=== PATIENT | male | born 1950 | race African-American/Black ===

== ENCOUNTER 2018-12-21 10:11 | Inpatient (IN) | payer MEDICARE, MEDICAID ==
[~2018-12-21] VITALS: Ht 176.5 cm; Wt 68.0 kg
[2018-12-21] MEDS ORDERED: MORPHINE SULFATE 4 MG/ML CPJ (NOT FOR IM USE) IV STA (11:13)
[2018-12-21] MEDS ORDERED: ONDANSETRON HCL 4MG/2ML INJ IV STA (11:13)
[2018-12-21 12:07] LABS: BASOPHILS % 0.8 % (0.0-2.0); EOSINOPHILS % 0.7 % (0.0-5.0); HEMATOCRIT. 51.4 % (42.0-52.0); HEMOGLOBIN. 17.5 g/dL (14.0-18.0); LYMPHOCYTES % 20.3 % (20.0-50.0); MEAN CORPUSCULAR HEMOGLOBIN 32.8 pg (28.0-32.0); MEAN CORPUSCULAR VOLUME 96.3 fL (80.0-94.0); MEAN PLATELET VOLUME 7.2 fl (7.4-10.4); MONOCYTES % 6.6 % (2.0-8.0); NEUTROPHILS % 71.6 % (40.0-76.0); PLATELET 247 x1000/uL (130-400); RED BLOOD CELL COUNT 5.33 mill/uL (4.7-6.1); RED CELL DISTRIBUTION WIDTH 12.9 % (11.6-14.6)
[2018-12-21 12:12] LABS: CHLORIDE 101 mEq/L (98-107)
[2018-12-21 12:13] LABS: INR 1.1; PROTHROMBIN TIME 11.1 sec (9.1-11.1)
[2018-12-21 12:16] LABS: ETHANOL BLOOD < 10 mg/dL
[2018-12-21] MEDS ORDERED: IOHEXOL-300 100 ML BOTTLE ONE (15:20)
[2018-12-21] MEDS ORDERED: VISCOUS LIDOCAINE 2% 15 ML UDC MM STA (16:49)
[2018-12-21] MEDS ORDERED: MAGNESIUM/ALUMINUM HYDROXIDE/SIMETHICONE 30ML UDC PO ONE (17:00)
[2018-12-21 17:03] LABS: CLARITY URINE CLEAR (CLEAR); COLOR URINE YELLOW (YELLOW); KETONES URINE 1+ (NEGATIVE); LEUKOCYTE ESTERASE URINE 2+ (NEGATIVE); NITRITE URINE NEGATIVE (NEGATIVE); OCCULT BLOOD URINE NEGATIVE (NEGATIVE); PROTEIN URINE NEGATIVE (NEGATIVE); SPECIFIC GRAVITY URINE 1.028 (1.005-1.030)
[2018-12-21 17:28] LABS: *AMPHETAMINES SCREEN URINE NEGATIVE (NEGATIVE); *BARBITURATES SCREEN URINE NEGATIVE (NEGATIVE); *BENZODIAZEPINES SCREEN URINE NEGATIVE (NEGATIVE); *COCAINE SCREEN URINE PRESUMTIVE POSITIVE (NEGATIVE); CANNABINOID URINE SCREEN PRESUMTIVE POSITIVE (NEGATIVE); METHADONE URINE SCREEN NEGATIVE (NEGATIVE); PHENCYCLIDINE URINE SCREEN NEGATIVE (NEGATIVE)
[2018-12-21 17:29] LABS: OPIATES URINE SCREEN PRESUMTIVE POSITIVE (NEGATIVE)
[2018-12-21] MEDS ORDERED: ACETAMINOPHEN 325MG TABLET PO PRN (18:45)
[2018-12-21] MEDS ORDERED: HYDRALAZINE 20MG/ML VIAL IV PRN (18:45)
[2018-12-21] MEDS ORDERED: GUAIFENESIN 200MG/10ML SUGAR FREE UDC PO PRN (18:45)
[2018-12-21] MEDS ORDERED: IPRATROPIUM/ALBUTEROL 0.5-3(2.5)MG/3ML NEB INH PRN (18:45)
[2018-12-21] MEDS ORDERED: MAGNESIUM/ALUMINUM HYDROXIDE/SIMETHICONE 30ML UDC PO PRN (18:45)
[2018-12-21] MEDS ORDERED: ONDANSETRON HCL 4MG/2ML INJ IV PRN (18:45)
[2018-12-21] MEDS ORDERED: CLONIDINE 0.1MG TABLET PO PRN (18:45)
[2018-12-21] MEDS ORDERED: HYDROCODONE/ACETAMINOPHEN 10/325MG TABLET PO PRN (18:45)
[2018-12-21] MEDS ORDERED: LORAZEPAM 2MG/ML CPJ IV PRN (18:45)
[2018-12-21] MEDS ORDERED: NA PHOS,M-B/NA PHOS,DI-BA ENEMA 118ML PR PRN (18:45)
[2018-12-21] MEDS ORDERED: DOCUSATE SODIUM 100MG CAPSULE PO PRN (18:45)
[2018-12-21 23:50] VITALS: BP 111/65
[2018-12-22] VITALS: BP 111/65
[2018-12-22] MEDS: HYDROMORPHONE HCL/PF 2MG/ML CPJ IV PRN ×2 (00:35→13:12)
[2018-12-22] MEDS: SODIUM CHLORIDE 0.45% 1,000 ML IV SCH ×2 (00:37→22:52)
[2018-12-22 00:38] LABS: CREATINE KINASE MB FRACTION 2.5 ng/mL (0.5-3.6)
[2018-12-22 04:00] VITALS: BP 99/61
[2018-12-22] MEDS: SODIUM CHLORIDE 0.9% INJ 3ML FLUSH IVF SCH ×3 (05:42→21:28)
[2018-12-22 07:35] LABS: BASOPHILS % 0.7 % (0.0-2.0); EOSINOPHILS % 0.8 % (0.0-5.0); HEMATOCRIT. 46.2 % (42.0-52.0); LYMPHOCYTES % 27.9 % (20.0-50.0); MEAN CORPUSCULAR VOLUME 95.4 fL (80.0-94.0); MEAN PLATELET VOLUME 7.4 fl (7.4-10.4); NEUTROPHILS % 63.6 % (40.0-76.0); PLATELET 210 x1000/uL (130-400); RED BLOOD CELL COUNT 4.84 mill/uL (4.7-6.1); RED CELL DISTRIBUTION WIDTH 12.6 % (11.6-14.6)
[2018-12-22 07:44] VITALS: BP 110/69
[2018-12-22] MEDS: ASPIRIN 81MG EC TABLET PO SCH (08:38)
[2018-12-22] MEDS: ENOXAPARIN 40MG/0.4ML SYR SUBCUT SCH (08:39)
[2018-12-22] MEDS: PANTOPRAZOLE SODIUM 40 MG/VIAL IV SCH (08:39)
[2018-12-22 10:13] LABS: CHLORIDE 102 mEq/L (98-107)
[2018-12-22 10:22] LABS: CREATINE KINASE 52 IU/L (39-308)
[2018-12-22 10:24] LABS: LDL CHOLESTEROL 86 mg/dL (5-100); T4 FREE 1.23 ng/dL (0.76-1.46)
[2018-12-22 10:25] LABS: HDL CHOLESTEROL 42 mg/dL (40-59)
[2018-12-22 10:33] LABS: CREATINE KINASE MB FRACTION 2.6 ng/mL (0.5-3.6)
[2018-12-22 12:00] VITALS: BP 109/65
[2018-12-22] MEDS ORDERED: METOCLOPRAMIDE HCL 10MG/2ML VIAL IV PRN (12:15)
[2018-12-22 16:00] VITALS: BP 101/71
[2018-12-22 20:00] VITALS: BP 110/58
[2018-12-23] VITALS: BP 122/65
[2018-12-23 01:16] LABS: CREATINE KINASE MB FRACTION 2.6 ng/mL (0.5-3.6)
[2018-12-23 04:00] VITALS: BP 109/68
[2018-12-23] MEDS: HYDROMORPHONE HCL/PF 2MG/ML CPJ IV PRN (05:51)
[2018-12-23] MEDS: SODIUM CHLORIDE 0.9% INJ 3ML FLUSH IVF SCH ×3 (05:52→21:36)
[2018-12-23 07:27] LABS: CREATINE KINASE MB FRACTION 2.4 ng/mL (0.5-3.6)
[2018-12-23 08:00] VITALS: BP 102/65
[2018-12-23] MEDS: PANTOPRAZOLE SODIUM 40 MG/VIAL IV SCH (08:10)
[2018-12-23] MEDS: ASPIRIN 81MG EC TABLET PO SCH (08:10)
[2018-12-23] MEDS: ENOXAPARIN 40MG/0.4ML SYR SUBCUT SCH (08:10)
[2018-12-23 08:41] LABS: EOSINOPHILS % 1.3 % (0.0-5.0); HEMATOCRIT. 40.9 % (42.0-52.0); HEMOGLOBIN. 14.1 g/dL (14.0-18.0); LYMPHOCYTES % 40.2 % (20.0-50.0); MEAN CORPUSCULAR HEMOGLOBIN 32.7 pg (28.0-32.0); MEAN CORPUSCULAR VOLUME 95.2 fL (80.0-94.0); MEAN PLATELET VOLUME 7.4 fl (7.4-10.4); MONOCYTES % 7.4 % (2.0-8.0); NEUTROPHILS % 50.1 % (40.0-76.0); PLATELET 179 x1000/uL (130-400); RED CELL DISTRIBUTION WIDTH 12.5 % (11.6-14.6)
[2018-12-23] MEDS ORDERED: ASPIRIN 81MG TABLET PO SCH (09:00)
[2018-12-23 12:00] VITALS: BP 103/69
[2018-12-23 16:00] VITALS: BP 104/65
[2018-12-23 20:00] VITALS: BP 104/69
[2018-12-24] VITALS: BP 119/81
[2018-12-24] MEDS: HYDROMORPHONE HCL/PF 2MG/ML CPJ IV PRN ×4 (00:20→22:26)
[2018-12-24 04:00] VITALS: BP 111/75
[2018-12-24] MEDS: SODIUM CHLORIDE 0.9% INJ 3ML FLUSH IVF SCH ×3 (05:58→22:31)
[2018-12-24 07:27] LABS: BASOPHILS % 0.9 % (0.0-2.0); EOSINOPHILS % 2.1 % (0.0-5.0); HEMATOCRIT. 39.2 % (42.0-52.0); HEMOGLOBIN. 13.3 g/dL (14.0-18.0); LYMPHOCYTES % 50.2 % (20.0-50.0); MEAN CORPUSCULAR HEMOGLOBIN 32.7 pg (28.0-32.0); MEAN CORPUSCULAR VOLUME 96.2 fL (80.0-94.0); MEAN PLATELET VOLUME 7.5 fl (7.4-10.4); MONOCYTES % 6.6 % (2.0-8.0); NEUTROPHILS % 40.2 % (40.0-76.0); PLATELET 169 x1000/uL (130-400); RED BLOOD CELL COUNT 4.08 mill/uL (4.7-6.1); RED CELL DISTRIBUTION WIDTH 12.6 % (11.6-14.6)
[2018-12-24 08:00] VITALS: BP 96/63
[2018-12-24] MEDS: PANTOPRAZOLE SODIUM 40 MG/VIAL IV SCH (09:00)
[2018-12-24] MEDS: ENOXAPARIN 40MG/0.4ML SYR SUBCUT SCH (09:00)
[2018-12-24] MEDS: ASPIRIN 81MG EC TABLET PO SCH (09:45)
[2018-12-24 12:00] VITALS: BP 96/64
[2018-12-24 16:00] VITALS: BP 94/66
[2018-12-24 20:00] VITALS: BP 110/71
[2018-12-25] VITALS: BP 113/66
[2018-12-25 04:00] VITALS: BP 115/70
[2018-12-25] MEDS: SODIUM CHLORIDE 0.9% INJ 3ML FLUSH IVF SCH ×2 (06:06→13:05)
[2018-12-25 08:00] VITALS: BP 99/66
[2018-12-25] MEDS: PANTOPRAZOLE SODIUM 40 MG/VIAL IV SCH (08:33)
[2018-12-25] MEDS: ASPIRIN 81MG EC TABLET PO SCH (08:33)
[2018-12-25] MEDS: ENOXAPARIN 40MG/0.4ML SYR SUBCUT SCH (08:33)
[2018-12-25 09:24] LABS: BASOPHILS % 0.8 % (0.0-2.0); HEMATOCRIT. 40.2 % (42.0-52.0); HEMOGLOBIN. 13.8 g/dL (14.0-18.0); LYMPHOCYTES % 37.2 % (20.0-50.0); MEAN CORPUSCULAR VOLUME 96.1 fL (80.0-94.0); MEAN PLATELET VOLUME 7.2 fl (7.4-10.4); MONOCYTES % 7.7 % (2.0-8.0); NEUTROPHILS % 52.3 % (40.0-76.0); PLATELET 174 x1000/uL (130-400); RED BLOOD CELL COUNT 4.18 mill/uL (4.7-6.1); RED CELL DISTRIBUTION WIDTH 12.9 % (11.6-14.6)
[2018-12-25 10:12] LABS: CHLORIDE 105 mEq/L (98-107)
[2018-12-25 12:00] VITALS: BP 127/85
[2018-12-25 12:10] VITALS: BP 104/73
== END 2018-12-25 14:05 | disposition home or self-care (01) | DRG 683 ==
LOC: ER 10:11 → 6WST 15:06 → EDBEDREQTM 21:52 → EDBEDREQ 21:52 → EDBEDREQSVC 21:52 → ENRESERV 22:58
PROVIDERS: ADMIT Internal Medicine; ATTEND Internal Medicine
DX: I12.9 Hypertensive chronic kidney disease with stage 1 through stage 4 chronic kidney disease, or unspecified chronic kidney disease (principal); N17.9 Acute kidney failure, unspecified; I69.354 Hemiplegia and hemiparesis following cerebral infarction affecting left non-dominant side; N40.0 Benign prostatic hyperplasia without lower urinary tract symptoms; E87.5 Hyperkalemia; R74.8 Abnormal levels of other serum enzymes; N18.3 Chronic kidney disease, stage 3 (moderate); E78.5 Hyperlipidemia, unspecified; F19.10 Other psychoactive substance abuse, uncomplicated; Z59.0 Homelessness
CPT/HCPCS: 36415; 71045; 74177; 80048; 80061; 80305; 82550; 82553; 83036; 83880; 84439; 84443; 84484; 85379; 93005; 93306; 93970; 96374; 96375; 97162; 97166; 97535; 99285; C9113; G0482; J1170; J1650; J2270; J2405; J7070; Q9967

== ENCOUNTER 2018-12-30 13:27 | Inpatient (IN) | payer MEDICARE, MEDICAID ==
[~2018-12-30] VITALS: Ht 175.3 cm; Wt 70.8 kg
[2018-12-30] MEDS ORDERED: GABA-531 PO (13:37)
[2018-12-30] MEDS ORDERED: AMLO10TA80 PO (13:37)
[2018-12-30] MEDS ORDERED: SODIUM CHLORIDE 0.9% 1,000 ML IV ONE (14:44)
[2018-12-30 16:30] LABS: CLARITY URINE CLEAR (CLEAR); COLOR URINE YELLOW (YELLOW); KETONES URINE NEGATIVE (NEGATIVE); LEUKOCYTE ESTERASE URINE TRACE (NEGATIVE); NITRITE URINE NEGATIVE (NEGATIVE); OCCULT BLOOD URINE NEGATIVE (NEGATIVE); PH URINE 7.5 (4.5-8.0); PROTEIN URINE NEGATIVE (NEGATIVE); SPECIFIC GRAVITY URINE 1.009 (1.005-1.030); UROBILINOGEN URINE 0.2 E.U./dL (0.2-1.0)
[2018-12-30 16:31] LABS: BASOPHILS % 0.5 % (0.0-2.0); EOSINOPHILS % 1.1 % (0.0-5.0); HEMATOCRIT. 43.5 % (42.0-52.0); HEMOGLOBIN. 14.9 g/dL (14.0-18.0); LYMPHOCYTES % 18.8 % (20.0-50.0); MEAN CORPUSCULAR VOLUME 96.7 fL (80.0-94.0); MEAN PLATELET VOLUME 7.2 fl (7.4-10.4); MONOCYTES % 6.5 % (2.0-8.0); NEUTROPHILS % 73.1 % (40.0-76.0); PLATELET 202 x1000/uL (130-400); RED CELL DISTRIBUTION WIDTH 13.2 % (11.6-14.6)
[2018-12-30 16:36] LABS: *COCAINE SCREEN URINE PRESUMTIVE POSITIVE (NEGATIVE); METHADONE URINE SCREEN NEGATIVE (NEGATIVE)
[2018-12-30 16:37] LABS: *AMPHETAMINES SCREEN URINE NEGATIVE (NEGATIVE); *BARBITURATES SCREEN URINE NEGATIVE (NEGATIVE); *BENZODIAZEPINES SCREEN URINE NEGATIVE (NEGATIVE); CANNABINOID URINE SCREEN PRESUMTIVE POSITIVE (NEGATIVE); CHLORIDE 105 mEq/L (98-107); OPIATES URINE SCREEN NEGATIVE (NEGATIVE); PHENCYCLIDINE URINE SCREEN NEGATIVE (NEGATIVE)
[2018-12-30] MEDS ORDERED: KETOROLAC 15MG/ML VIAL IV ONE (16:45)
[2018-12-30 16:51] LABS: PROTHROMBIN TIME 9.8 sec (9.1-11.1)
[2018-12-30] MEDS ORDERED: ASPIRIN 325MG EC TABLET PO ONE (17:30)
[2018-12-30] MEDS ORDERED: CEFTRIAXONE 1 G PREMIX 50 ML IV ONE (19:00)
[2018-12-30] MEDS ORDERED: LORAZEPAM 2MG/ML CPJ IV PRN (19:15)
[2018-12-30] MEDS ORDERED: DOCUSATE SODIUM 100MG CAPSULE PO PRN (19:15)
[2018-12-30] MEDS ORDERED: HYDROMORPHONE HCL/PF 2MG/ML CPJ IV PRN (19:15)
[2018-12-30] MEDS ORDERED: ACETAMINOPHEN 325MG TABLET PO PRN (19:15)
[2018-12-30] MEDS ORDERED: DIPHENHYDRAMINE 50MG/ML VIAL IV PRN (19:15)
[2018-12-30] MEDS ORDERED: HYDRALAZINE 20MG/ML VIAL IV PRN (19:15)
[2018-12-30] MEDS ORDERED: GUAIFENESIN 200MG/10ML SUGAR FREE UDC PO PRN (19:15)
[2018-12-30] MEDS ORDERED: ONDANSETRON HCL 4MG/2ML INJ IV PRN (19:15)
[2018-12-30] MEDS ORDERED: CLONIDINE 0.1MG TABLET PO PRN (19:15)
[2018-12-30] MEDS ORDERED: NA PHOS,M-B/NA PHOS,DI-BA ENEMA 118ML PR PRN (19:15)
[2018-12-30] MEDS ORDERED: IPRATROPIUM/ALBUTEROL 0.5-3(2.5)MG/3ML NEB INH PRN (19:15)
[2018-12-30 20:50] VITALS: BP 116/65
[2018-12-30 21:00] VITALS: BP 119/72
[2018-12-30] MEDS: SODIUM CHLORIDE 0.9% INJ 3ML FLUSH IVF SCH (22:00)
[2018-12-30] MEDS: ENOXAPARIN 40MG/0.4ML SYR SUBCUT SCH (22:00)
[2018-12-31] VITALS: BP 110/65
[2018-12-31] MEDS: HYDROCODONE/ACETAMINOPHEN 10/325MG TABLET PO PRN ×4 (01:57→16:06)
[2018-12-31 02:53] LABS: CREATINE KINASE MB FRACTION 3.7 ng/mL (0.5-3.6)
[2018-12-31 04:00] VITALS: BP 111/70
[2018-12-31] MEDS: SODIUM CHLORIDE 0.9% INJ 3ML FLUSH IVF SCH ×3 (06:00→21:05)
[2018-12-31 07:32] LABS: CHLORIDE 109 mEq/L (98-107)
[2018-12-31 07:37] LABS: BASOPHILS % 0.6 % (0.0-2.0); EOSINOPHILS % 2.3 % (0.0-5.0); HEMATOCRIT. 34.3 % (42.0-52.0); HEMOGLOBIN. 11.8 g/dL (14.0-18.0); LYMPHOCYTES % 36.6 % (20.0-50.0); MEAN CORPUSCULAR HEMOGLOBIN 33.1 pg (28.0-32.0); MEAN CORPUSCULAR VOLUME 96.1 fL (80.0-94.0); MEAN PLATELET VOLUME 7.1 fl (7.4-10.4); MONOCYTES % 9.1 % (2.0-8.0); NEUTROPHILS % 51.4 % (40.0-76.0); PLATELET 157 x1000/uL (130-400); RED BLOOD CELL COUNT 3.57 mill/uL (4.7-6.1); RED CELL DISTRIBUTION WIDTH 13.1 % (11.6-14.6)
[2018-12-31 07:49] LABS: HDL CHOLESTEROL 52 mg/dL (40-59); LDL CHOLESTEROL 63 mg/dL (5-100)
[2018-12-31 07:50] LABS: CREATINE KINASE 149 IU/L (39-308); CREATINE KINASE MB FRACTION 3.3 ng/mL (0.5-3.6)
[2018-12-31 07:51] LABS: T4 FREE 0.99 ng/dL (0.76-1.46)
[2018-12-31 08:00] VITALS: BP 112/73
[2018-12-31] MEDS: ASPIRIN 81MG EC TABLET PO SCH (08:51)
[2018-12-31 12:00] VITALS: BP 112/50
[2018-12-31 16:00] VITALS: BP_SYST 114; BP_SYST 122; BP_DIAS 71; BP_DIAS 82
[2018-12-31 20:00] VITALS: BP 114/75
[2018-12-31] MEDS: ENOXAPARIN 40MG/0.4ML SYR SUBCUT SCH (21:06)
[2019-01-01] VITALS: BP 110/68
[2019-01-01] MEDS: HYDROCODONE/ACETAMINOPHEN 10/325MG TABLET PO PRN ×5 (02:26→21:56)
[2019-01-01 04:00] VITALS: BP 123/78
[2019-01-01] MEDS: SODIUM CHLORIDE 0.9% INJ 3ML FLUSH IVF SCH ×3 (05:37→21:18)
[2019-01-01 08:00] VITALS: BP 132/70
[2019-01-01] MEDS: ASPIRIN 81MG EC TABLET PO SCH (09:13)
[2019-01-01] MEDS ORDERED: DULO60CA63 PO (11:21)
[2019-01-01] MEDS ORDERED: CYAN-33 MT (11:21)
[2019-01-01] MEDS ORDERED: DOCU-150 MT (11:21)
[2019-01-01] MEDS ORDERED: BIMA2.5D5 EACHEYE (11:21)
[2019-01-01] MEDS ORDERED: TRAZ-212 MT (11:21)
[2019-01-01] MEDS ORDERED: AMLO10TA80 MT (11:24)
[2019-01-01] MEDS ORDERED: GABA-531 MT (11:24)
[2019-01-01 12:00] VITALS: BP 110/87
[2019-01-01 16:00] VITALS: BP 100/54
[2019-01-01] MEDS: MAGNESIUM/ALUMINUM HYDROXIDE/SIMETHICONE 30ML UDC PO PRN (17:38)
[2019-01-01] MEDS: GABAPENTIN 300MG CAPSULE PO SCH (17:38)
[2019-01-01 20:00] VITALS: BP 123/84
[2019-01-01] MEDS: TRAZODONE HCL 50MG TABLET PO SCH (21:12)
[2019-01-01] MEDS: LATANOPROST 0.005% OPHTH DROPS 2.5ML EACHEYE SCH (21:13)
[2019-01-01] MEDS: ENOXAPARIN 40MG/0.4ML SYR SUBCUT SCH (21:13)
[2019-01-02] VITALS (7 sets, daily range): BP systolic 102–129; BP diastolic 55–80
[2019-01-02] MEDS: HYDROCODONE/ACETAMINOPHEN 10/325MG TABLET PO PRN ×2 (05:10→20:53)
[2019-01-02] MEDS: SODIUM CHLORIDE 0.9% INJ 3ML FLUSH IVF SCH ×3 (05:11→20:33)
[2019-01-02] MEDS: AMLODIPINE 10MG TABLET PO SCH (08:56)
[2019-01-02] MEDS: GABAPENTIN 300MG CAPSULE PO SCH ×3 (09:08→17:37)
[2019-01-02] MEDS: ASPIRIN 81MG EC TABLET PO SCH (09:08)
[2019-01-02] MEDS: DULOXETINE HCL 60MG DR CAPSULE PO SCH (09:08)
[2019-01-02] MEDS: MAGNESIUM/ALUMINUM HYDROXIDE/SIMETHICONE 30ML UDC PO PRN (12:13)
[2019-01-02] MEDS: LATANOPROST 0.005% OPHTH DROPS 2.5ML EACHEYE SCH (20:31)
[2019-01-02] MEDS: TRAZODONE HCL 50MG TABLET PO SCH (20:31)
[2019-01-02] MEDS: ENOXAPARIN 40MG/0.4ML SYR SUBCUT SCH (20:32)
[2019-01-03] VITALS: BP 120/80
[2019-01-03 04:00] VITALS: BP 109/61
[2019-01-03] MEDS: SODIUM CHLORIDE 0.9% INJ 3ML FLUSH IVF SCH (06:37)
[2019-01-03 08:03] VITALS: BP 102/56
[2019-01-03] MEDS: AMLODIPINE 10MG TABLET PO SCH (08:49)
[2019-01-03] MEDS: ASPIRIN 81MG EC TABLET PO SCH (08:55)
[2019-01-03] MEDS: GABAPENTIN 300MG CAPSULE PO SCH (08:56)
[2019-01-03] MEDS: DULOXETINE HCL 60MG DR CAPSULE PO SCH (08:56)
== END 2019-01-03 10:34 | disposition home or self-care (01) | DRG 682 ==
LOC: ER 13:32 → 8WST 17:34 → ENRESERV 20:15
PROVIDERS: ADMIT Internal Medicine; ATTEND Internal Medicine
DX: N17.0 Acute kidney failure with tubular necrosis (principal); G92 Toxic encephalopathy; M94.0 Chondrocostal junction syndrome [Tietze]; N18.9 Chronic kidney disease, unspecified; E78.5 Hyperlipidemia, unspecified; F14.10 Cocaine abuse, uncomplicated; Z79.899 Other long term (current) drug therapy; F12.10 Cannabis abuse, uncomplicated; M79.662 Pain in left lower leg; M79.661 Pain in right lower leg; M54.9 Dorsalgia, unspecified; G89.29 Other chronic pain; I12.9 Hypertensive chronic kidney disease with stage 1 through stage 4 chronic kidney disease, or unspecified chronic kidney disease; Z71.51 Drug abuse counseling and surveillance of drug abuser; I69.392 Facial weakness following cerebral infarction
CPT/HCPCS: 36415; 71045; 80061; 80305; 82550; 82553; 84439; 84481; 84484; 93005; 93306; 96365; 96375; 99285; J0696; J1650; J1885; J7030

== ENCOUNTER 2019-02-08 11:53 | Inpatient (IN) | payer MEDICARE, MEDICAID ==
[~2019-02-08] VITALS: Ht 175.3 cm; Wt 69.9 kg
[~2019-02-08 11:53] MED LIST: AMLO10TA80 MT; BIMA2.5D5 EACHEYE; CYAN-33 MT; DOCU-150 MT; DULO60CA63 PO; GABA-531 MT; TRAZ-212 MT
[2019-02-08 12:48] LABS: BASOPHILS % 1.4 % (0.0-2.0); EOSINOPHILS % 2.4 % (0.0-5.0); HEMATOCRIT. 38.9 % (42.0-52.0); HEMOGLOBIN. 13.1 g/dL (14.0-18.0); LYMPHOCYTES % 29.9 % (20.0-50.0); MEAN CORPUSCULAR HEMOGLOBIN 32.7 pg (28.0-32.0); MEAN CORPUSCULAR VOLUME 97.4 fL (80.0-94.0); MEAN PLATELET VOLUME 7.1 fl (7.4-10.4); MONOCYTES % 8.9 % (2.0-8.0); NEUTROPHILS % 57.4 % (40.0-76.0); PLATELET 190 x1000/uL (130-400); RED BLOOD CELL COUNT 3.99 mill/uL (4.7-6.1); RED CELL DISTRIBUTION WIDTH 13.9 % (11.6-14.6)
[2019-02-08 12:52] LABS: CHLORIDE 111 mEq/L (98-107)
[2019-02-08 12:56] LABS: INR 1.1; PARTIAL THROMBOPLASTIN TIME 20.7 sec (23.4-31.0); PROTHROMBIN TIME 10.7 sec (9.1-11.1)
[2019-02-08] MEDS ORDERED: IBUPROFEN 600MG TABLET PO ONE (15:15)
[2019-02-08 20:00] VITALS: BP 118/69
[2019-02-08 22:35] VITALS: BP 118/69
[2019-02-09] VITALS: BP 124/75
[2019-02-09] MEDS ORDERED: ONDANSETRON HCL 4MG/2ML INJ IV PRN
[2019-02-09] MEDS ORDERED: DOCUSATE SODIUM 100MG CAPSULE PO PRN
[2019-02-09] MEDS ORDERED: DIPHENHYDRAMINE 50MG/ML VIAL IV PRN
[2019-02-09] MEDS ORDERED: IBUPROFEN 600MG TABLET PO PRN
[2019-02-09] MEDS ORDERED: GUAIFENESIN 200MG/10ML SUGAR FREE UDC PO PRN
[2019-02-09] MEDS ORDERED: IPRATROPIUM/ALBUTEROL 0.5-3(2.5)MG/3ML NEB INH PRN
[2019-02-09] MEDS ORDERED: CLONIDINE 0.1MG TABLET PO PRN
[2019-02-09] MEDS ORDERED: ACETAMINOPHEN 325MG TABLET PO PRN
[2019-02-09] MEDS ORDERED: MAGNESIUM/ALUMINUM HYDROXIDE/SIMETHICONE 30ML UDC PO PRN
[2019-02-09 03:41] LABS: *AMPHETAMINES SCREEN URINE NEGATIVE (NEGATIVE); *BARBITURATES SCREEN URINE NEGATIVE (NEGATIVE); *COCAINE SCREEN URINE PRESUMTIVE POSITIVE (NEGATIVE); METHADONE URINE SCREEN NEGATIVE (NEGATIVE); OPIATES URINE SCREEN NEGATIVE (NEGATIVE)
[2019-02-09 03:42] LABS: CANNABINOID URINE SCREEN PRESUMTIVE POSITIVE (NEGATIVE); PHENCYCLIDINE URINE SCREEN NEGATIVE (NEGATIVE)
[2019-02-09 03:43] LABS: *BENZODIAZEPINES SCREEN URINE NEGATIVE (NEGATIVE)
[2019-02-09 04:00] VITALS: BP 123/73
[2019-02-09] MEDS ORDERED: SODIUM CHLORIDE 0.9% INJ 3ML FLUSH IVF SCH (06:00)
[2019-02-09 07:30] LABS: EOSINOPHILS % 3.2 % (0.0-5.0); HEMATOCRIT. 37.7 % (42.0-52.0); HEMOGLOBIN. 12.8 g/dL (14.0-18.0); LYMPHOCYTES % 41.3 % (20.0-50.0); MEAN CORPUSCULAR HEMOGLOBIN 32.8 pg (28.0-32.0); MEAN CORPUSCULAR VOLUME 96.4 fL (80.0-94.0); MEAN PLATELET VOLUME 7.5 fl (7.4-10.4); MONOCYTES % 9.2 % (2.0-8.0); NEUTROPHILS % 45.3 % (40.0-76.0); PLATELET 186 x1000/uL (130-400); RED BLOOD CELL COUNT 3.91 mill/uL (4.7-6.1); RED CELL DISTRIBUTION WIDTH 13.3 % (11.6-14.6)
[2019-02-09] MEDS ORDERED: ASPIRIN 81MG EC TABLET PO SCH (09:00)
[2019-02-09] MEDS ORDERED: FOLIC ACID 1MG TABLET PO SCH (11:45)
[2019-02-09] MEDS ORDERED: MULTIVITAMINS,THER W-MINERALS TABLET PO SCH (11:45)
[2019-02-09] MEDS ORDERED: INFLUENZA VIRUS VACCINE(AFLURIA) 0.5ML SYR IM ONE (12:00)
[2019-02-09 14:43] VITALS: BP 118/72
[2019-02-10] MEDS ORDERED: CYANOCOBALAMIN 1000MCG TABLET PO SCH (07:15)
== END 2019-02-09 16:00 | disposition home or self-care (01) | DRG 552 ==
LOC: ER 11:53 → 5WST 15:23 → EDBEDREQ 15:28 → ENRESERV 20:19
PROVIDERS: ADMIT Internal Medicine; ATTEND Internal Medicine
DX: M47.22 Other spondylosis with radiculopathy, cervical region (principal); D72.819 Decreased white blood cell count, unspecified; F14.10 Cocaine abuse, uncomplicated; I12.9 Hypertensive chronic kidney disease with stage 1 through stage 4 chronic kidney disease, or unspecified chronic kidney disease; M46.90 Unspecified inflammatory spondylopathy, site unspecified; N18.3 Chronic kidney disease, stage 3 (moderate); R32 Unspecified urinary incontinence; Z72.0 Tobacco use; Z86.73 Personal history of transient ischemic attack (TIA), and cerebral infarction without residual deficits; Z79.899 Other long term (current) drug therapy
CPT/HCPCS: 36415; 71045; 80048; 80305; 83735; 83880; 84484; 93005; 93306; 96374; 99285

== ENCOUNTER 2019-08-09 14:18 | Inpatient (IN) | payer MEDICARE, MEDICAID ==
[2019-08-08 23:00] VITALS: BP 138/91
[~2019-08-09] VITALS: Ht 177.8 cm; Wt 73.6 kg
[~2019-08-09 14:18] MED LIST changes: -DULO60CA63 PO; +DULO60CA64 PO; -TRAZ-212 MT; +TRAZ-251 MT
[2019-08-09] MEDS ORDERED: SODIUM CHLORIDE 0.9% 1,000 ML IV ONE (14:35)
[2019-08-09 15:22] LABS: BASOPHILS % 1.1 % (0.0-2.0); EOSINOPHILS % 1.7 % (0.0-5.0); HEMATOCRIT. 44.4 % (42.0-52.0); HEMOGLOBIN. 15.2 g/dL (14.0-18.0); LYMPHOCYTES % 36.8 % (20.0-50.0); MEAN CORPUSCULAR HEMOGLOBIN 33.4 pg (28.0-32.0); MEAN CORPUSCULAR VOLUME 97.8 fL (80.0-94.0); MEAN PLATELET VOLUME 7.6 fl (7.4-10.4); MONOCYTES % 8.4 % (2.0-8.0); PLATELET 246 x1000/uL (130-400); RED BLOOD CELL COUNT 4.54 mill/uL (4.7-6.1); RED CELL DISTRIBUTION WIDTH 14.3 % (11.6-14.6)
[2019-08-09 15:23] LABS: CHLORIDE 105 mEq/L (98-107)
[2019-08-09 15:27] LABS: ETHANOL BLOOD < 10 mg/dL
[2019-08-09 15:30] LABS: PARTIAL THROMBOPLASTIN TIME 23.1 sec (23.4-31.0); PROTHROMBIN TIME 10.5 sec (9.6-11.0)
[2019-08-09 15:33] LABS: CREATINE KINASE 98 IU/L (39-308)
[2019-08-09 15:35] LABS: CREATINE KINASE MB FRACTION 2.9 ng/mL (0.5-3.6)
[2019-08-09] MEDS ORDERED: IPRATROPIUM/ALBUTEROL 0.5-3(2.5)MG/3ML NEB HHN PRN (17:00)
[2019-08-09] MEDS ORDERED: TRAMADOL 50MG TABLET PO PRN (17:00)
[2019-08-09] MEDS ORDERED: DOCUSATE SODIUM 100MG CAPSULE PO PRN (17:00)
[2019-08-09] MEDS ORDERED: GUAIFENESIN 200MG/10ML SUGAR FREE UDC PO PRN (17:00)
[2019-08-09] MEDS ORDERED: ONDANSETRON HCL 4MG/2ML INJ IV PRN (17:00)
[2019-08-09] MEDS ORDERED: CLONIDINE 0.1MG TABLET PO PRN (17:00)
[2019-08-09] MEDS ORDERED: MAGNESIUM/ALUMINUM HYDROXIDE/SIMETHICONE 30ML UDC PO PRN (17:00)
[2019-08-09] MEDS ORDERED: LORAZEPAM 0.5MG TABLET PO PRN (17:00)
[2019-08-09] MEDS ORDERED: ACETAMINOPHEN 325MG TABLET PO PRN (17:00)
[2019-08-09] MEDS ORDERED: LEVOFLOXACIN 500MG PREMIX 100 ML IV NR (18:37)
[2019-08-09] MEDS ORDERED: ENOXAPARIN 40MG/0.4ML SYR SUBCUT NR (18:39)
[2019-08-09] MEDS ORDERED: SODIUM CHLORIDE 0.9% 1000ML BAG (SEPSIS BOLUS) IV ONE (20:15)
[2019-08-09] MEDS ORDERED: ZOLPIDEM TARTRATE 5MG TABLET PO PRN (21:00)
[2019-08-09 22:22] LABS: FOLIC ACID (FOLATE) SERUM 10.9 ng/mL (>5.38)
[2019-08-09] MEDS ORDERED: SODIUM CHLORIDE 0.9% 2,700 ML IV SCH (22:45)
[2019-08-09 23:20] LABS: CREATINE KINASE MB FRACTION 4.8 ng/mL (0.5-3.6)
[2019-08-09] MEDS: FAMOTIDINE 20MG TABLET PO SCH (23:25)
[2019-08-09] MEDS: SODIUM CHLORIDE 0.9% 1,000 ML IV SCH (23:25)
[2019-08-09] MEDS: ASCORBIC ACID 500 MG TABLET PO SCH (23:25)
[2019-08-09] MEDS ORDERED: CEFTRIAXONE 1 G PREMIX 50 ML IV SCH (23:45)
[2019-08-10] VITALS (8 sets, daily range): BP systolic 122–151; BP diastolic 33–104
[2019-08-10 07:12] LABS: CREATINE KINASE MB FRACTION 4.3 ng/mL (0.5-3.6)
[2019-08-10] MEDS: ASPIRIN 325MG EC TABLET PO SCH (08:57)
[2019-08-10] MEDS: ASCORBIC ACID 500 MG TABLET PO SCH ×2 (08:57→21:17)
[2019-08-10] MEDS: ZINC SULFATE 220 MG ( 50 ) CAPSULE PO SCH (08:57)
[2019-08-10] MEDS: SODIUM CHLORIDE 0.9% 1,000 ML IV SCH ×2 (08:57→17:53)
[2019-08-10 14:56] LABS: CHLORIDE 111 mEq/L (98-107)
[2019-08-10 15:06] LABS: CREATINE KINASE MB FRACTION 3.7 ng/mL (0.5-3.6)
[2019-08-10] MEDS: ENOXAPARIN 40MG/0.4ML SYR SUBCUT SCH (17:52)
[2019-08-10 19:35] LABS: CLARITY URINE CLEAR (CLEAR); COLOR URINE YELLOW (YELLOW); KETONES URINE NEGATIVE (NEGATIVE); LEUKOCYTE ESTERASE URINE 2+ (NEGATIVE); NITRITE URINE NEGATIVE (NEGATIVE); OCCULT BLOOD URINE NEGATIVE (NEGATIVE); PROTEIN URINE NEGATIVE (NEGATIVE); SPECIFIC GRAVITY URINE 1.005 (1.005-1.030); UROBILINOGEN URINE 0.2 E.U./dL (0.2-1.0)
[2019-08-10] MEDS: LEVOFLOXACIN 500MG PREMIX 100 ML IV SCH (20:23)
[2019-08-10] MEDS: FAMOTIDINE 20MG TABLET PO SCH (21:17)
[2019-08-10] MEDS: CEFTRIAXONE 1 G PREMIX 50 ML IV SCH (21:18)
[2019-08-11] VITALS (13 sets, daily range): BP systolic 105–155; BP diastolic 52–100
[2019-08-11] MEDS: SODIUM CHLORIDE 0.9% 1,000 ML IV SCH (04:15)
[2019-08-11] MEDS: ASCORBIC ACID 500 MG TABLET PO SCH ×2 (09:29→20:14)
[2019-08-11] MEDS: ASPIRIN 325MG EC TABLET PO SCH (09:29)
[2019-08-11] MEDS: ZINC SULFATE 220 MG ( 50 ) CAPSULE PO SCH (09:29)
[2019-08-11] MEDS ORDERED: LEVOFLOXACIN 500MG PREMIX 100 ML IV SCH (11:00)
[2019-08-11] MEDS: AMLODIPINE 5MG TABLET PO SCH (14:30)
[2019-08-11] MEDS: ENOXAPARIN 40MG/0.4ML SYR SUBCUT SCH (17:53)
[2019-08-11] MEDS: FAMOTIDINE 20MG TABLET PO SCH (20:14)
[2019-08-11] MEDS: LEVOFLOXACIN 500MG PREMIX 100 ML IV SCH (20:15)
[2019-08-11] MEDS: CEFTRIAXONE 1 G PREMIX 50 ML IV SCH (20:15)
[2019-08-12] VITALS (12 sets, daily range): BP systolic 106–154; BP diastolic 55–115
[2019-08-12] MEDS: AMLODIPINE 5MG TABLET PO SCH (08:45)
[2019-08-12] MEDS: ASPIRIN 325MG EC TABLET PO SCH (08:45)
[2019-08-12] MEDS: ZINC SULFATE 220 MG ( 50 ) CAPSULE PO SCH (08:45)
[2019-08-12] MEDS: ASCORBIC ACID 500 MG TABLET PO SCH ×2 (08:46→20:29)
[2019-08-12] MEDS: ENOXAPARIN 40MG/0.4ML SYR SUBCUT SCH (17:04)
[2019-08-12] MEDS: LEVOFLOXACIN 500MG PREMIX 100 ML IV SCH (20:28)
[2019-08-12] MEDS: FAMOTIDINE 20MG TABLET PO SCH (20:29)
[2019-08-12] MEDS: CEFTRIAXONE 1 G PREMIX 50 ML IV SCH (21:49)
[2019-08-13] VITALS (8 sets, daily range): BP systolic 101–146; BP diastolic 58–79
[2019-08-13] MEDS: ASCORBIC ACID 500 MG TABLET PO SCH (08:35)
[2019-08-13] MEDS: ZINC SULFATE 220 MG ( 50 ) CAPSULE PO SCH (08:35)
[2019-08-13] MEDS: AMLODIPINE 5MG TABLET PO SCH (08:35)
[2019-08-13] MEDS: ASPIRIN 325MG EC TABLET PO SCH (08:35)
[2019-08-13] MEDS ORDERED: LEVOFLOXACIN 500MG TABLET PO SCH (11:00)
== END 2019-08-13 18:25 | disposition home health service (06) | DRG 871 ==
LOC: ER 14:18 → SUPCPDRO 16:57 → EDBEDREQSVC 16:59 → EDBEDREQTM 16:59 → EDBEDREQ 16:59 → ENRESERV 20:12 → 5EST 22:15
PROVIDERS: ADMIT Internal Medicine; ATTEND Internal Medicine
DX: A41.9 Sepsis, unspecified organism (principal); N17.0 Acute kidney failure with tubular necrosis; R65.20 Severe sepsis without septic shock; N18.9 Chronic kidney disease, unspecified; I12.9 Hypertensive chronic kidney disease with stage 1 through stage 4 chronic kidney disease, or unspecified chronic kidney disease; E86.0 Dehydration; Z87.820 Personal history of traumatic brain injury
CPT/HCPCS: 36415; 71045; 80061; 80320; 81003; 82550; 82553; 82607; 82746; 83036; 83540; 83550; 83605; 83880; 84484; 93005; 93306; 93970; 96374; 97162; 97165; 99285; J0696; J1650; J1956; J2405; J7030; G0480

== ENCOUNTER 2020-07-09 15:39 | Inpatient (IN) | payer MEDICARE, MEDICAID ==
[~2020-07-09] VITALS: Ht 175.3 cm; Wt 78.0 kg
[2020-07-09] MEDS ORDERED: SODIUM CHLORIDE 0.9% 1,000 ML IV ONE (15:59)
[2020-07-09] MEDS ORDERED: DILTIAZEM HCL 5MG/ML 5ML VIAL IV ONE (16:00)
[2020-07-09 16:36] LABS: EOSINOPHILS % 0.4 % (0.0-5.0); HEMATOCRIT. 38.8 % (42.0-52.0); HEMOGLOBIN. 13.2 g/dL (14.0-18.0); LYMPHOCYTES % 12.8 % (20.0-50.0); MEAN CORPUSCULAR HEMOGLOBIN 33.8 pg (28.0-32.0); MEAN CORPUSCULAR VOLUME 99.3 fL (80.0-94.0); MEAN PLATELET VOLUME 7.7 fl (7.4-10.4); MONOCYTES % 6.2 % (2.0-8.0); NEUTROPHILS % 79.6 % (40.0-76.0); PLATELET 185 x1000/uL (130-400); RED BLOOD CELL COUNT 3.91 mill/uL (4.7-6.1); RED CELL DISTRIBUTION WIDTH 14.6 % (11.6-14.6)
[2020-07-09 16:45] LABS: INR 1.1; PROTHROMBIN TIME 11.4 sec (9.6-11.0)
[2020-07-09 16:49] LABS: CHLORIDE 109 mEq/L (98-107)
[2020-07-09 16:51] LABS: ETHANOL BLOOD < 10 mg/dL
[2020-07-09] MEDS ORDERED: AZITHROMYCIN 500 MG in DEXT 5% WATER 250 ML IV ONE (17:15)
[2020-07-09] MEDS ORDERED: CEFTRIAXONE 1 G PREMIX 50 ML IV ONE (17:15)
[2020-07-09] MEDS ORDERED: FUROSEMIDE 20MG/2ML VIAL IVP ONE (17:15)
[2020-07-09] MEDS ORDERED: ASPIRIN 325MG EC TABLET PO ONE (17:15)
[2020-07-09] MEDS ORDERED: ACETAMINOPHEN 325MG TABLET PO PRN ×2 (18:15)
[2020-07-09] MEDS ORDERED: TRAMADOL 50MG TABLET PO PRN (18:15)
[2020-07-09] MEDS ORDERED: IPRATROPIUM/ALBUTEROL 0.5-3(2.5)MG/3ML NEB NEB PRN (18:15)
[2020-07-09] MEDS ORDERED: NITROGLYCERIN 0.4MG TABLET SL SL PRN (18:15)
[2020-07-09] MEDS ORDERED: ZOLPIDEM TARTRATE 5MG TABLET PO PRN (18:15)
[2020-07-09] MEDS ORDERED: GUAIFENESIN 200MG/10ML SUGAR FREE UDC PO PRN (18:15)
[2020-07-09] MEDS ORDERED: CLONIDINE 0.1MG TABLET PO PRN (18:15)
[2020-07-09] MEDS ORDERED: MAGNESIUM/ALUMINUM HYDROXIDE/SIMETHICONE 30ML UDC PO PRN (18:15)
[2020-07-09] MEDS ORDERED: DOCUSATE SODIUM 100MG CAPSULE PO PRN (18:15)
[2020-07-09 18:48] LABS: CLARITY URINE CLEAR (CLEAR); COLOR URINE YELLOW (YELLOW); KETONES URINE NEGATIVE (NEGATIVE); LEUKOCYTE ESTERASE URINE TRACE (NEGATIVE); NITRITE URINE NEGATIVE (NEGATIVE); OCCULT BLOOD URINE NEGATIVE (NEGATIVE); PROTEIN URINE NEGATIVE (NEGATIVE); SPECIFIC GRAVITY URINE 1.015 (1.005-1.030); UROBILINOGEN URINE 0.2 E.U./dL (0.2-1.0)
[2020-07-09 19:00] LABS: FOLIC ACID (FOLATE) SERUM 8.7 ng/mL (>5.38)
[2020-07-09 19:00] LABS: *AMPHETAMINES SCREEN URINE NEGATIVE (NEGATIVE); *BARBITURATES SCREEN URINE NEGATIVE (NEGATIVE); *BENZODIAZEPINES SCREEN URINE NEGATIVE (NEGATIVE); *COCAINE SCREEN URINE PRESUMTIVE POSITIVE (NEGATIVE); METHADONE URINE SCREEN NEGATIVE (NEGATIVE); OPIATES URINE SCREEN NEGATIVE (NEGATIVE); PHENCYCLIDINE URINE SCREEN NEGATIVE (NEGATIVE)
[2020-07-09] MEDS ORDERED: LEVOFLOXACIN 500MG PREMIX 100 ML IV SCH (19:00)
[2020-07-09 19:01] LABS: CANNABINOID URINE SCREEN PRESUMTIVE POSITIVE (NEGATIVE)
[2020-07-09 21:46] VITALS: BP 128/98
[2020-07-09 22:00] VITALS: BP 128/98
[2020-07-09] MEDS: ENOXAPARIN 100MG/ML SYR SUBCUT SCH (22:47)
[2020-07-09] MEDS: FAMOTIDINE 20MG TABLET PO SCH (22:48)
[2020-07-09] MEDS: ASCORBIC ACID 500 MG TABLET PO SCH (22:48)
[2020-07-09 23:50] LABS: CREATINE KINASE MB FRACTION 2.8 ng/mL (0.5-3.6)
[2020-07-10] VITALS: BP 121/79
[2020-07-10] MEDS: DILTIAZEM HCL 60MG TABLET PO SCH ×4 (00:28→18:42)
[2020-07-10 04:00] VITALS: BP 136/93
[2020-07-10 06:33] LABS: CHLORIDE 110 mEq/L (98-107)
[2020-07-10 06:43] LABS: CREATINE KINASE 76 IU/L (39-308)
[2020-07-10 06:46] LABS: PHOSPHORUS 2.9 mg/dL (2.5-4.9)
[2020-07-10 07:08] LABS: BASOPHILS % 0.6 % (0.0-2.0); EOSINOPHILS % 1.5 % (0.0-5.0); HEMATOCRIT. 35.2 % (42.0-52.0); LYMPHOCYTES % 22.6 % (20.0-50.0); MEAN CORPUSCULAR HEMOGLOBIN 33.6 pg (28.0-32.0); MEAN CORPUSCULAR VOLUME 98.3 fL (80.0-94.0); MONOCYTES % 8.8 % (2.0-8.0); NEUTROPHILS % 66.5 % (40.0-76.0); PLATELET 159 x1000/uL (130-400); RED BLOOD CELL COUNT 3.58 mill/uL (4.7-6.1); RED CELL DISTRIBUTION WIDTH 14.2 % (11.6-14.6)
[2020-07-10] MEDS ORDERED: ASPIRIN 325MG EC TABLET PO SCH (09:00)
[2020-07-10] MEDS: FAMOTIDINE 20MG TABLET PO SCH (09:37)
[2020-07-10] MEDS: ENOXAPARIN 100MG/ML SYR SUBCUT SCH (09:37)
[2020-07-10] MEDS: ASCORBIC ACID 500 MG TABLET PO SCH ×2 (09:38→21:12)
[2020-07-10] MEDS: ZINC SULFATE 220 MG ( 50 ) CAPSULE PO SCH (09:38)
[2020-07-10 11:56] VITALS: BP 108/63
[2020-07-10 16:00] VITALS: BP 128/87
[2020-07-10] MEDS: CEFTRIAXONE 1,000 MG in DEXTROSE 5% WATER 50 ML IV SCH (17:51)
[2020-07-10] MEDS ORDERED: CEFTRIAXONE 1,000 MG in DEXTROSE 5% WATER 50 ML IV SCH (18:00)
[2020-07-10] MEDS: LEVOFLOXACIN 250MG PREMIX 50 ML IV SCH (18:44)
[2020-07-10 20:00] VITALS: BP 142/86
[2020-07-10] MEDS: ATORVASTATIN CALCIUM 40MG TABLET PO SCH (21:12)
[2020-07-10] MEDS: ENOXAPARIN 80MG/0.8ML SYR SUBCUT SCH (21:13)
[2020-07-11] VITALS: BP_SYST 109; BP_SYST 133; BP_DIAS 79; BP_DIAS 89
[2020-07-11] MEDS: DILTIAZEM HCL 60MG TABLET PO SCH ×2 (02:37→05:41)
[2020-07-11 04:00] VITALS: BP 103/71
[2020-07-11 08:00] VITALS: BP 112/70
[2020-07-11] MEDS: ASPIRIN 81MG TABLET PO SCH (08:43)
[2020-07-11] MEDS: FAMOTIDINE 20MG TABLET PO SCH (08:43)
[2020-07-11] MEDS: ENOXAPARIN 80MG/0.8ML SYR SUBCUT SCH ×2 (08:49→20:19)
[2020-07-11] MEDS: ZINC SULFATE 220 MG ( 50 ) CAPSULE PO SCH (08:49)
[2020-07-11] MEDS: ASCORBIC ACID 500 MG TABLET PO SCH ×2 (08:49→20:18)
[2020-07-11] MEDS: METOPROLOL TARTRATE 25MG TABLET PO SCH ×2 (09:43→20:18)
[2020-07-11] MEDS: ONDANSETRON HCL 4MG/2ML INJ IV PRN (10:32)
[2020-07-11 12:00] VITALS: BP 107/74
[2020-07-11 16:00] VITALS: BP 146/98
[2020-07-11] MEDS: CEFTRIAXONE 1,000 MG in DEXTROSE 5% WATER 50 ML IV SCH (16:25)
[2020-07-11] MEDS: LEVOFLOXACIN 250MG PREMIX 50 ML IV SCH (18:23)
[2020-07-11 20:00] VITALS: BP_SYST 118; BP_SYST 128; BP_DIAS 79; BP_DIAS 82
[2020-07-11] MEDS: ATORVASTATIN CALCIUM 40MG TABLET PO SCH (20:18)
[2020-07-12] VITALS: BP_SYST 122; BP_SYST 125; BP_DIAS 60; BP_DIAS 93
[2020-07-12 04:00] VITALS: BP_SYST 115; BP_SYST 119; BP_DIAS 60; BP_DIAS 84
[2020-07-12 08:00] VITALS: BP 112/92
[2020-07-12] MEDS: ASPIRIN 81MG TABLET PO SCH (08:22)
[2020-07-12] MEDS: FAMOTIDINE 20MG TABLET PO SCH (08:22)
[2020-07-12] MEDS: ASCORBIC ACID 500 MG TABLET PO SCH ×2 (08:22→20:43)
[2020-07-12] MEDS: ONDANSETRON HCL 4MG/2ML INJ IV PRN ×2 (08:22→13:15)
[2020-07-12] MEDS: ZINC SULFATE 220 MG ( 50 ) CAPSULE PO SCH (08:22)
[2020-07-12] MEDS: METOPROLOL TARTRATE 25MG TABLET PO SCH (08:23)
[2020-07-12] MEDS: ENOXAPARIN 80MG/0.8ML SYR SUBCUT SCH ×2 (08:24→20:45)
[2020-07-12 12:00] VITALS: BP 120/84
[2020-07-12] MEDS ORDERED: METOPROLOL TARTRATE 5MG/5ML VIAL IV NR (12:15)
[2020-07-12] MEDS ORDERED: MAGNESIUM 1 G PREMIX 100 ML IV NR (14:00)
[2020-07-12 15:52] VITALS: BP 138/98
[2020-07-12] MEDS: CEFTRIAXONE 1,000 MG in DEXTROSE 5% WATER 50 ML IV SCH (16:13)
[2020-07-12] MEDS: LEVOFLOXACIN 250MG PREMIX 50 ML IV SCH (18:16)
[2020-07-12 20:00] VITALS: BP 139/95
[2020-07-12] MEDS: ATORVASTATIN CALCIUM 40MG TABLET PO SCH (20:43)
[2020-07-12] MEDS: METOPROLOL TARTRATE 50MG TABLET PO SCH (20:44)
[2020-07-13] VITALS: BP 134/91
[2020-07-13 04:00] VITALS: BP 127/94
[2020-07-13 08:00] VITALS: BP 120/90
[2020-07-13] MEDS: ENOXAPARIN 80MG/0.8ML SYR SUBCUT SCH ×2 (08:34→20:35)
[2020-07-13] MEDS: ASPIRIN 81MG TABLET PO SCH (08:34)
[2020-07-13] MEDS: FAMOTIDINE 20MG TABLET PO SCH (08:34)
[2020-07-13] MEDS: ASCORBIC ACID 500 MG TABLET PO SCH ×2 (08:34→20:33)
[2020-07-13] MEDS: ZINC SULFATE 220 MG ( 50 ) CAPSULE PO SCH (08:34)
[2020-07-13] MEDS: METOPROLOL TARTRATE 50MG TABLET PO SCH ×2 (08:42→20:34)
[2020-07-13 12:00] VITALS: BP 128/68
[2020-07-13 16:00] VITALS: BP 110/67
[2020-07-13] MEDS: CEFTRIAXONE 1,000 MG in DEXTROSE 5% WATER 50 ML IV SCH (17:15)
[2020-07-13] MEDS: LEVOFLOXACIN 250MG PREMIX 50 ML IV SCH (18:31)
[2020-07-13 20:00] VITALS: BP 138/63
[2020-07-13] MEDS: ATORVASTATIN CALCIUM 40MG TABLET PO SCH (20:33)
[2020-07-14] VITALS: BP 128/108
[2020-07-14 08:00] VITALS: BP 141/96
[2020-07-14] MEDS: ENOXAPARIN 80MG/0.8ML SYR SUBCUT SCH ×2 (09:34→20:20)
[2020-07-14] MEDS: FAMOTIDINE 20MG TABLET PO SCH (09:35)
[2020-07-14] MEDS: ZINC SULFATE 220 MG ( 50 ) CAPSULE PO SCH (09:35)
[2020-07-14] MEDS: ASCORBIC ACID 500 MG TABLET PO SCH ×2 (09:35→20:18)
[2020-07-14] MEDS: ASPIRIN 81MG TABLET PO SCH (09:35)
[2020-07-14] MEDS: METOPROLOL TARTRATE 50MG TABLET PO SCH ×2 (09:38→20:06)
[2020-07-14] MEDS ORDERED: METOPROLOL TARTRATE 25MG TABLET PO NR (09:45)
[2020-07-14] MEDS ORDERED: AMIODARONE HCL 150 MG in DEXT 5% WATER 100 ML IV SCH (10:30)
[2020-07-14] MEDS ORDERED: AMIODARONE HCL 900 MG in DEXT 5% WATER 482 ML IV SCH (10:30)
[2020-07-14] MEDS: ONDANSETRON HCL 4MG/2ML INJ IV PRN (11:46)
[2020-07-14 12:00] VITALS: BP 129/75
[2020-07-14] MEDS: AMIODARONE HCL 200 MG TABLET PO SCH ×2 (13:10→20:19)
[2020-07-14 16:00] VITALS: BP 141/90
[2020-07-14] MEDS: CEFTRIAXONE 1,000 MG in DEXTROSE 5% WATER 50 ML IV SCH (16:15)
[2020-07-14 20:00] VITALS: BP 108/61
[2020-07-14] MEDS: ATORVASTATIN CALCIUM 40MG TABLET PO SCH (20:19)
[2020-07-15] VITALS: BP 126/85
[2020-07-15 04:00] VITALS: BP 131/87
[2020-07-15 08:00] VITALS: BP 147/78
[2020-07-15] MEDS: ZINC SULFATE 220 MG ( 50 ) CAPSULE PO SCH (08:24)
[2020-07-15] MEDS: ASCORBIC ACID 500 MG TABLET PO SCH (08:24)
[2020-07-15] MEDS: FAMOTIDINE 20MG TABLET PO SCH (08:24)
[2020-07-15] MEDS: AMIODARONE HCL 200 MG TABLET PO SCH (08:24)
[2020-07-15] MEDS: ENOXAPARIN 80MG/0.8ML SYR SUBCUT SCH (08:25)
[2020-07-15] MEDS: METOPROLOL TARTRATE 50MG TABLET PO SCH (08:25)
[2020-07-15] MEDS: ASPIRIN 81MG TABLET PO SCH (08:26)
[2020-07-15 12:00] VITALS: BP 110/74
[2020-07-15] MEDS: ONDANSETRON HCL 4MG/2ML INJ IV PRN (12:44)
[2020-07-15 13:06] VITALS: BP 110/74
[2020-07-15 16:00] VITALS: BP 113/71
== END 2020-07-15 16:25 | disposition home or self-care (01) | DRG 280 ==
LOC: ER 15:39 → EDBEDREQTM 17:10 → EDBEDREQ 17:10 → 8WST 17:38 → EDBEDREQTM 18:12 → EDBEDREQ 18:12 → ENRESERV 19:45
PROVIDERS: ADMIT Internal Medicine; ATTEND Internal Medicine
DX: I21.A1 Myocardial infarction type 2 (principal); J18.9 Pneumonia, unspecified organism; G92 Toxic encephalopathy; E43 Unspecified severe protein-calorie malnutrition; I50.40 Unspecified combined systolic (congestive) and diastolic (congestive) heart failure; I13.0 Hypertensive heart and chronic kidney disease with heart failure and stage 1 through stage 4 chronic kidney disease, or unspecified chronic kidney disease; I69.354 Hemiplegia and hemiparesis following cerebral infarction affecting left non-dominant side; N39.0 Urinary tract infection, site not specified; I82.402 Acute embolism and thrombosis of unspecified deep veins of left lower extremity; D63.8 Anemia in other chronic diseases classified elsewhere; E78.5 Hyperlipidemia, unspecified; F14.10 Cocaine abuse, uncomplicated; N18.9 Chronic kidney disease, unspecified; E66.9 Obesity, unspecified; I49.3 Ventricular premature depolarization; I48.0 Paroxysmal atrial fibrillation; F12.10 Cannabis abuse, uncomplicated; Z79.899 Other long term (current) drug therapy; Z71.6 Tobacco abuse counseling; Z68.25 Body mass index [BMI] 25.0-25.9, adult
CPT/HCPCS: 36415; 71045; 80048; 80053; 80061; 80305; 80320; 81003; 82550; 82553; 82607; 82746; 83036; 83540; 83550; 83605; 83735; 83880; 84100; 84484; 85025; 93005; 93306; 93970; 94640; 99291; J0282; J0456; J0696; J1650; J1940; J1956; J2405; J3475; J3490; J7030; J7060; G0480

== ENCOUNTER 2020-08-10 13:31 | Inpatient (IN) | payer MEDICARE, MEDICAID ==
[~2020-08-10] VITALS: Ht 175.3 cm; Wt 75.8 kg
[2020-08-10] MEDS ORDERED: ASPIRIN 81MG TABLET PO ONE (13:45)
[2020-08-10] MEDS ORDERED: DILTIAZEM HCL 5MG/ML 5ML VIAL IV ONE (13:45)
[2020-08-10] MEDS ORDERED: METO100T16 MT (14:22)
[2020-08-10] MEDS ORDERED: APIX5TAB MT (14:22)
[2020-08-10] MEDS ORDERED: FAMO40TA7 MT (14:22)
[2020-08-10] MEDS ORDERED: AMIO100T4 PO (14:22)
[2020-08-10] MEDS ORDERED: ATOR40TA70 MT (14:22)
[2020-08-10] MEDS ORDERED: ASPI-1497 MT (14:22)
[2020-08-10 14:31] LABS: BASOPHILS % 0.8 % (0.0-2.0); EOSINOPHILS % 0.4 % (0.0-5.0); HEMATOCRIT. 40.1 % (42.0-52.0); HEMOGLOBIN. 13.6 g/dL (14.0-18.0); MEAN CORPUSCULAR HEMOGLOBIN 34.2 pg (28.0-32.0); MEAN CORPUSCULAR VOLUME 100.6 fL (80.0-94.0); MEAN PLATELET VOLUME 8.1 fl (7.4-10.4); MONOCYTES % 6.6 % (2.0-8.0); NEUTROPHILS % 68.2 % (40.0-76.0); PLATELET 198 x1000/uL (130-400); RED BLOOD CELL COUNT 3.99 mill/uL (4.7-6.1); RED CELL DISTRIBUTION WIDTH 14.1 % (11.6-14.6)
[2020-08-10 14:35] LABS: CHLORIDE 110 mEq/L (98-107)
[2020-08-10 14:41] LABS: D-DIMER 3.33 mg/L FEU (<0.50); INR 1.2; PARTIAL THROMBOPLASTIN TIME 28.6 sec (23.4-31.0); PROTHROMBIN TIME 12.4 sec (9.6-11.0)
[2020-08-10] MEDS ORDERED: SODIUM CHLORIDE 0.9% 1,000 ML IV ONE (14:41)
[2020-08-10] MEDS ORDERED: IPRATROPIUM/ALBUTEROL 0.5-3(2.5)MG/3ML NEB HHN PRN (15:45)
[2020-08-10] MEDS ORDERED: ACETAMINOPHEN 325MG TABLET PO PRN (15:45)
[2020-08-10] MEDS ORDERED: CLONIDINE 0.1MG TABLET PO PRN (15:45)
[2020-08-10 16:13] LABS: PHOSPHORUS 3.4 mg/dL (2.5-4.9)
[2020-08-10] MEDS ORDERED: ENOXAPARIN 80MG/0.8ML SYR SUBCUT ONE (16:30)
[2020-08-10] MEDS: METOPROLOL TARTRATE 100MG TABLET PO SCH (16:49)
[2020-08-10] MEDS: GABAPENTIN 300MG CAPSULE PO SCH (17:30)
[2020-08-10] MEDS ORDERED: AMIODARONE HCL 150 MG in DEXT 5% WATER 100 ML IV ONE (18:30)
[2020-08-10] MEDS ORDERED: AMIODARONE HCL 900 MG in DEXT 5% WATER 482 ML IV SCH ×2 (18:30→18:45)
[2020-08-10] MEDS ORDERED: METOPROLOL TARTRATE 5MG/5ML VIAL IV NR (18:37)
[2020-08-10] MEDS: TRAZODONE HCL 50MG TABLET PO SCH ×2 (21:00→23:59)
[2020-08-10 21:07] LABS: *AMPHETAMINES SCREEN URINE NEGATIVE (NEGATIVE); *BARBITURATES SCREEN URINE NEGATIVE (NEGATIVE); *BENZODIAZEPINES SCREEN URINE NEGATIVE (NEGATIVE)
[2020-08-10 21:08] LABS: *COCAINE SCREEN URINE PRESUMTIVE POSITIVE (NEGATIVE); CANNABINOID URINE SCREEN PRESUMTIVE POSITIVE (NEGATIVE); METHADONE URINE SCREEN NEGATIVE (NEGATIVE); OPIATES URINE SCREEN NEGATIVE (NEGATIVE); PHENCYCLIDINE URINE SCREEN NEGATIVE (NEGATIVE)
[2020-08-10 22:00] VITALS: BP 137/62
[2020-08-10 22:22] VITALS: BP 137/62
[2020-08-10] MEDS: ONDANSETRON HCL 4MG/2ML INJ IV PRN (22:53)
[2020-08-10] MEDS ORDERED: DEXTROSE 50% WATER 50ML SYRINGE IV PRN (23:45)
[2020-08-11] VITALS (25 sets, daily range): BP systolic 74–147; BP diastolic 37–97
[2020-08-11] MEDS ORDERED: BLOOD SUGAR DIAGNOSTIC STRIP TEST SCH (06:50)
[2020-08-11 06:51] LABS: HEMOGLOBIN. 12.9 g/dL (14.0-18.0); RED BLOOD CELL COUNT 3.77 mill/uL (4.7-6.1)
[2020-08-11 06:53] LABS: HEMATOCRIT. 38.3 % (42.0-52.0); MEAN CORPUSCULAR HEMOGLOBIN 34.2 pg (28.0-32.0); MEAN CORPUSCULAR VOLUME 101.3 fL (80.0-94.0); MEAN PLATELET VOLUME 8.2 fl (7.4-10.4); PLATELET 175 x1000/uL (130-400); RED CELL DISTRIBUTION WIDTH 14.3 % (11.6-14.6)
[2020-08-11] MEDS: INSULIN LISPRO 100 UNITS/ML SUBCUT SCH ×4 (07:20→20:39)
[2020-08-11] MEDS ORDERED: INSULIN LISPRO 100 UNITS/ML SUBCUT SCH (07:20)
[2020-08-11] MEDS: BLOOD SUGAR DIAGNOSTIC STRIP TEST SCH ×4 (07:22→20:39)
[2020-08-11] MEDS: GABAPENTIN 300MG CAPSULE PO SCH ×3 (09:00→17:00)
[2020-08-11] MEDS: DOCUSATE SODIUM 100MG CAPSULE PO SCH (09:00)
[2020-08-11] MEDS: AMLODIPINE 10MG TABLET PO SCH (09:00)
[2020-08-11] MEDS ORDERED: ATORVASTATIN CALCIUM 40MG TABLET PO SCH (09:00)
[2020-08-11] MEDS ORDERED: AMIODARONE HCL 200 MG TABLET PO ONE (09:00)
[2020-08-11] MEDS ORDERED: FAMOTIDINE 40MG TABLET PO SCH (09:00)
[2020-08-11 09:01] LABS: CHLORIDE 107 mEq/L (98-107)
[2020-08-11 09:16] LABS: HDL CHOLESTEROL 50 mg/dL (40-59)
[2020-08-11 09:22] LABS: LDL CHOLESTEROL 68 mg/dL (5-100)
[2020-08-11] MEDS: FAMOTIDINE 20MG TABLET PO SCH (11:09)
[2020-08-11] MEDS: ASPIRIN 81MG EC TABLET PO SCH (11:09)
[2020-08-11] MEDS: APIXABAN 5 MG TABLET PO SCH ×2 (11:10→17:36)
[2020-08-11] MEDS ORDERED: FUROSEMIDE 20MG/2ML VIAL IVP NR (11:30)
[2020-08-11] MEDS: DULOXETINE HCL 60MG DR CAPSULE PO SCH (11:48)
[2020-08-11] MEDS: METOPROLOL TARTRATE 100MG TABLET PO SCH (11:48)
[2020-08-11] MEDS ORDERED: ENOXAPARIN 40MG/0.4ML SYR SUBCUT SCH (16:30)
[2020-08-11] MEDS: DEXTROSE 50% WATER 50ML SYRINGE IV PRN ×2 (17:37→18:44)
[2020-08-11] MEDS ORDERED: DEXTROSE 50% WATER 50ML SYRINGE IV NR ×2 (19:00→20:00)
[2020-08-11] MEDS ORDERED: SODIUM POLYSTYRENE SULFONATE 15 G/60 ML BOT PO NR (19:30)
[2020-08-11 19:48] LABS: PLATELET ESTIMATE NORMAL
[2020-08-11] MEDS ORDERED: INSULIN REGULAR (HUMULIN R) UD 100 UNITS/ML SYR IV NR (20:00)
[2020-08-11] MEDS: DEXT 5%/0.9% NACL 1,000 ML IV SCH (20:11)
[2020-08-11] MEDS: TRAZODONE HCL 50MG TABLET PO SCH (20:13)
[2020-08-11] MEDS: DIPHENHYDRAMINE 50MG/ML VIAL IV PRN (20:38)
[2020-08-12] VITALS (14 sets, daily range): BP systolic 96–141; BP diastolic 51–92
[2020-08-12] MEDS: BLOOD SUGAR DIAGNOSTIC STRIP TEST SCH ×4 (06:55→21:08)
[2020-08-12 07:11] LABS: HEMATOCRIT. 38.6 % (42.0-52.0); HEMOGLOBIN. 12.8 g/dL (14.0-18.0); MEAN CORPUSCULAR HEMOGLOBIN 34.3 pg (28.0-32.0); MEAN CORPUSCULAR VOLUME 103.2 fL (80.0-94.0); MEAN PLATELET VOLUME 8.7 fl (7.4-10.4); PLATELET 121 x1000/uL (130-400); RED BLOOD CELL COUNT 3.74 mill/uL (4.7-6.1); RED CELL DISTRIBUTION WIDTH 14.3 % (11.6-14.6)
[2020-08-12] MEDS: INSULIN LISPRO 100 UNITS/ML SUBCUT SCH ×4 (07:20→21:00)
[2020-08-12 08:11] LABS: CHLORIDE 106 mEq/L (98-107)
[2020-08-12 08:24] LABS: PHOSPHORUS 6.8 mg/dL (2.5-4.9)
[2020-08-12 08:25] LABS: CREATINE KINASE 279 IU/L (39-308)
[2020-08-12] MEDS: DOCUSATE SODIUM 100MG CAPSULE PO SCH (09:00)
[2020-08-12] MEDS: FAMOTIDINE 20MG TABLET PO SCH (09:17)
[2020-08-12] MEDS: AMLODIPINE 10MG TABLET PO SCH (09:17)
[2020-08-12] MEDS: GABAPENTIN 300MG CAPSULE PO SCH ×3 (09:17→17:00)
[2020-08-12] MEDS: ASPIRIN 81MG EC TABLET PO SCH (09:18)
[2020-08-12] MEDS: DULOXETINE HCL 60MG DR CAPSULE PO SCH (09:18)
[2020-08-12] MEDS: METOPROLOL TARTRATE 25MG TABLET PO SCH ×2 (09:18→21:08)
[2020-08-12] MEDS: APIXABAN 2.5 MG TABLET PO SCH ×2 (09:18→17:00)
[2020-08-12 09:55] LABS: BG BASE EXCESS -11.4 mmol/L (-2.0-2.0); BG CARBOXYHEMOGLOBIN 0.2 % (0.5-1.5); BG DEOXYHEMOGLOBIN 6.3 % (0.0-5.0); BG HCO3 ACT 13.8 mmol/L (22.0-26.0); BG METHEMOGLOBIN 0.2 % (0.0-1.5); BG OXYGEN SATURATION 93.7 % (92.0-98.5); BG OXYHEMOGLOBIN 93.3 % (94.0-97.0); BG PCO2 29.7 mmHg (35.0-45.0); BG PH 7.286 (7.350-7.450); BG PO2 82.9 mmHg (75.0-100.0); BG SAMPLE SITE RIGHT RADIAL; BG TOTAL HEMOGLOBIN 13.3 g/dL (12.0-18.0); BG VENT MODE ROOM AIR
[2020-08-12] MEDS ORDERED: SODIUM BICARBONATE 4% (2.4MEQ) 5ML VIAL IV ONE (10:41)
[2020-08-12] MEDS ORDERED: HEPARIN 1000 UNITS/ML 10ML ONE (10:42)
[2020-08-12] MEDS ORDERED: LIDOCAINE HCL 1% 20ML VIAL (Pyxis) INJ ONE (10:42)
[2020-08-12] MEDS ORDERED: SODIUM POLYSTYRENE SULFONATE 15 G/60 ML BOT PO NR (11:00)
[2020-08-12] MEDS ORDERED: IOHEXOL-300 50 ML BOTTLE IV ONE (11:22)
[2020-08-12 12:47] LABS: NUCLEATED RED BLOOD CELLS 3 /100 WBC
[2020-08-12 12:49] LABS: PLATELET ESTIMATE SLIGHTLY DECREASED
[2020-08-12] MEDS: ONDANSETRON HCL 4MG/2ML INJ IV PRN (14:26)
[2020-08-12] MEDS ORDERED: CEFTRIAXONE 1 G PREMIX 50 ML IV SCH (15:15)
[2020-08-12 16:16] LABS: CLARITY URINE CLOUDY (CLEAR); COLOR URINE DARK YELLOW (YELLOW); KETONES URINE 1+ (NEGATIVE); LEUKOCYTE ESTERASE URINE 1+ (NEGATIVE); NITRITE URINE NEGATIVE (NEGATIVE); OCCULT BLOOD URINE 2+ (NEGATIVE); PROTEIN URINE 2+ (NEGATIVE); SPECIFIC GRAVITY URINE 1.017 (1.005-1.030)
[2020-08-12 16:42] LABS: TOTAL IRON BINDING CAPACITY 239 ug/dL (250-450)
[2020-08-12] MEDS: CEFTRIAXONE 1,000 MG in DEXTROSE 5% WATER 50 ML IV SCH (17:08)
[2020-08-12 17:24] LABS: HEPATITIS B SURFACE ANTIGEN NEGATIVE
[2020-08-12 17:28] LABS: FOLIC ACID (FOLATE) SERUM > 20.00 ng/mL (>5.38); VITAMIN B12 SERUM > 2000.0 pg/mL (211-911)
[2020-08-12] MEDS: METRONIDAZOLE 500 MG PREMIX 100 ML IV SCH (17:47)
[2020-08-12 17:53] LABS: HEPATITIS A AB IGM NEGATIVE (NEGATIVE)
[2020-08-12 18:35] LABS: FERRITIN > 1650 ng/mL (22-322)
[2020-08-12] MEDS: DEXT 5%/0.9% NACL 1,000 ML IV SCH (19:20)
[2020-08-12] MEDS: DEXTROSE 50% WATER 50ML SYRINGE IV PRN (20:52)
[2020-08-12] MEDS: TRAZODONE HCL 50MG TABLET PO SCH (21:08)
[2020-08-13] VITALS (16 sets, daily range): BP systolic 114–183; BP diastolic 36–104
[2020-08-13] MEDS: METRONIDAZOLE 500 MG PREMIX 100 ML IV SCH ×3 (02:15→18:13)
[2020-08-13] MEDS: DEXTROSE 50% WATER 50ML SYRINGE IV PRN (02:21)
[2020-08-13 06:00] LABS: CHLORIDE 105 mEq/L (98-107)
[2020-08-13 06:16] LABS: HEMOGLOBIN. 11.8 g/dL (14.0-18.0); MEAN CORPUSCULAR VOLUME 101.2 fL (80.0-94.0); MEAN PLATELET VOLUME 8.3 fl (7.4-10.4); PLATELET 105 x1000/uL (130-400); RED BLOOD CELL COUNT 3.46 mill/uL (4.7-6.1); RED CELL DISTRIBUTION WIDTH 14.7 % (11.6-14.6)
[2020-08-13] MEDS: BLOOD SUGAR DIAGNOSTIC STRIP TEST SCH ×4 (07:02→21:20)
[2020-08-13] MEDS: INSULIN LISPRO 100 UNITS/ML SUBCUT SCH ×4 (07:20→21:00)
[2020-08-13] MEDS: AMLODIPINE 10MG TABLET PO SCH (09:00)
[2020-08-13] MEDS: GABAPENTIN 300MG CAPSULE PO SCH ×3 (09:00→17:12)
[2020-08-13] MEDS: METOPROLOL TARTRATE 25MG TABLET PO SCH ×2 (09:00→20:46)
[2020-08-13] MEDS ORDERED: HYDROCODONE/ACETAMINOPHEN 5/325MG TABLET PO PRN (09:15)
[2020-08-13] MEDS: CITRIC ACID/SODIUM CITRATE SOLN 30ML UDC PO SCH ×3 (10:22→17:12)
[2020-08-13] MEDS: DOCUSATE SODIUM 100MG CAPSULE PO SCH (10:23)
[2020-08-13] MEDS: DULOXETINE HCL 60MG DR CAPSULE PO SCH (10:23)
[2020-08-13] MEDS: FAMOTIDINE 20MG TABLET PO SCH (10:23)
[2020-08-13] MEDS: ASPIRIN 81MG EC TABLET PO SCH (10:29)
[2020-08-13] MEDS: APIXABAN 2.5 MG TABLET PO SCH ×2 (10:29→17:12)
[2020-08-13 13:58] LABS: NUCLEATED RED BLOOD CELLS 25 /100 WBC
[2020-08-13 13:59] LABS: PLATELET ESTIMATE DECREASED
[2020-08-13] MEDS: CEFTRIAXONE 1,000 MG in DEXTROSE 5% WATER 50 ML IV SCH (17:12)
[2020-08-13] MEDS: DIPHENHYDRAMINE 50MG/ML VIAL IV PRN (18:13)
[2020-08-13] MEDS: DEXT 5%/0.9% NACL 1,000 ML IV SCH (19:57)
[2020-08-13] MEDS: TRAZODONE HCL 50MG TABLET PO SCH (20:45)
[2020-08-14] VITALS (23 sets, daily range): BP systolic 97–159; BP diastolic 66–107
[2020-08-14] MEDS: METRONIDAZOLE 500 MG PREMIX 100 ML IV SCH ×3 (01:26→21:03)
[2020-08-14] MEDS: IPRATROPIUM/ALBUTEROL 0.5-3(2.5)MG/3ML NEB HHN SCH ×3 (01:30→11:54)
[2020-08-14 06:43] LABS: HEMATOCRIT. 35.7 % (42.0-52.0); HEMOGLOBIN. 12.1 g/dL (14.0-18.0); MEAN CORPUSCULAR HEMOGLOBIN 33.9 pg (28.0-32.0); MEAN PLATELET VOLUME 7.8 fl (7.4-10.4); PLATELET 85 x1000/uL (130-400); RED BLOOD CELL COUNT 3.57 mill/uL (4.7-6.1); RED CELL DISTRIBUTION WIDTH 14.8 % (11.6-14.6)
[2020-08-14] MEDS: BLOOD SUGAR DIAGNOSTIC STRIP TEST SCH ×4 (06:50→21:03)
[2020-08-14 07:18] LABS: PHOSPHORUS 3.5 mg/dL (2.5-4.9)
[2020-08-14] MEDS: INSULIN LISPRO 100 UNITS/ML SUBCUT SCH ×4 (07:20→21:00)
[2020-08-14] MEDS: CITRIC ACID/SODIUM CITRATE SOLN 30ML UDC PO SCH ×3 (08:22→16:39)
[2020-08-14] MEDS: DOCUSATE SODIUM 100MG CAPSULE PO SCH (08:22)
[2020-08-14] MEDS: DULOXETINE HCL 60MG DR CAPSULE PO SCH (08:22)
[2020-08-14] MEDS: GABAPENTIN 300MG CAPSULE PO SCH (08:22)
[2020-08-14 08:23] LABS: NUCLEATED RED BLOOD CELLS 33 /100 WBC
[2020-08-14] MEDS: ASPIRIN 81MG EC TABLET PO SCH (08:23)
[2020-08-14] MEDS: METOPROLOL TARTRATE 25MG TABLET PO SCH ×2 (08:23→21:03)
[2020-08-14] MEDS: FAMOTIDINE 20MG TABLET PO SCH (08:23)
[2020-08-14] MEDS: AMLODIPINE 10MG TABLET PO SCH (08:23)
[2020-08-14] MEDS: APIXABAN 2.5 MG TABLET PO SCH (08:23)
[2020-08-14 08:24] LABS: PLATELET ESTIMATE DECREASED
[2020-08-14 09:33] LABS: BG BASE EXCESS -1.3 mmol/L (-2.0-2.0); BG CARBOXYHEMOGLOBIN 0.2 % (0.5-1.5); BG DEOXYHEMOGLOBIN 8.7 % (0.0-5.0); BG FRACTION INSPIRED OXYGEN 28; BG HCO3 ACT 22.8 mmol/L (22.0-26.0); BG METHEMOGLOBIN 0.3 % (0.0-1.5); BG OXYGEN SATURATION 91.3 % (92.0-98.5); BG OXYHEMOGLOBIN 90.8 % (94.0-97.0); BG PCO2 36.4 mmHg (35.0-45.0); BG PH 7.415 (7.350-7.450); BG PO2 65.6 mmHg (75.0-100.0); BG SAMPLE SITE RIGHT RADIAL; BG TOTAL HEMOGLOBIN 13.3 g/dL (12.0-18.0); BG VENT MODE NASAL CANNULA
[2020-08-14] MEDS: LACTULOSE 20G/30ML UDC PO SCH ×2 (13:05→21:04)
[2020-08-14 13:07] LABS: HIV SCREEN 4G Non Reactive (Non Reactive)
[2020-08-14] MEDS: RIFAXIMIN 550 MG TABLET PO SCH ×2 (13:07→21:03)
[2020-08-14] MEDS: LACTULOSE 300 ML in WATER FOR IRRIGATION,STERILE 700 ML IR SCH ×2 (13:07→16:46)
[2020-08-14 16:05] LABS: BG BASE EXCESS -4.3 mmol/L (-2.0-2.0); BG DEOXYHEMOGLOBIN 1.1 % (0.0-5.0); BG FRACTION INSPIRED OXYGEN 80; BG HCO3 ACT 21.1 mmol/L (22.0-26.0); BG METHEMOGLOBIN 0.4 % (0.0-1.5); BG OXYGEN SATURATION 98.9 % (92.0-98.5); BG OXYHEMOGLOBIN 97.5 % (94.0-97.0); BG PCO2 39.9 mmHg (35.0-45.0); BG PH 7.341 (7.350-7.450); BG PO2 162.3 mmHg (75.0-100.0); BG SAMPLE SITE LEFT BRACHIAL; BG VENT MODE VENT - AC
[2020-08-14] MEDS: CEFTRIAXONE 1,000 MG in DEXTROSE 5% WATER 50 ML IV SCH (16:17)
[2020-08-14] MEDS ORDERED: PHENYLEPHRINE HCL 1% 15 ML NASAL SPRAY BOTHNSTRLS PRN (17:00)
[2020-08-14] MEDS: MIDAZOLAM HCL 100 MG in DEXT 5% WATER 80 ML IV PRN (17:00)
[2020-08-14] MEDS: FENTANYL CITRATE/PF 1,000 MCG in SODIUM CHLORIDE 0.9% 80 ML IV PRN (17:01)
[2020-08-14] MEDS: DEXT 5%/0.9% NACL 1,000 ML IV SCH (18:23)
[2020-08-14] MEDS: CEFEPIME 500 MG in DEXTROSE 5% WATER 50 ML IV SCH (18:26)
[2020-08-14 19:50] LABS: INR 1.8
[2020-08-14] MEDS ORDERED: VECURONIUM BROMIDE 10 MG/VIAL IV ONE (21:00)
[2020-08-14] MEDS ORDERED: SUCCINYLCHOLINE CHLORIDE 200MG/10ML IV ONE (21:00)
[2020-08-14] MEDS: OXYMETAZOLINE HCL NASAL SPRAY 15ML BOTHNSTRLS SCH (21:04)
[2020-08-15] VITALS (50 sets, daily range): BP systolic 112–153; BP diastolic 38–101
[2020-08-15] MEDS ORDERED: PHYTONADIONE 10MG/ML AMP SUBCUT NR (00:30)
[2020-08-15] MEDS: IPRATROPIUM/ALBUTEROL 0.5-3(2.5)MG/3ML NEB HHN SCH ×4 (02:28→20:02)
[2020-08-15] MEDS: BLOOD SUGAR DIAGNOSTIC STRIP TEST SCH ×4 (02:31→23:47)
[2020-08-15] MEDS: INSULIN LISPRO 100 UNITS/ML SUBCUT SCH ×4 (02:31→23:47)
[2020-08-15] MEDS: METRONIDAZOLE 500 MG PREMIX 100 ML IV SCH ×3 (04:05→20:30)
[2020-08-15 05:23] LABS: HEMATOCRIT. 36.1 % (42.0-52.0); HEMOGLOBIN. 12.2 g/dL (14.0-18.0); MEAN CORPUSCULAR HEMOGLOBIN 34.2 pg (28.0-32.0); MEAN CORPUSCULAR VOLUME 101.2 fL (80.0-94.0); MEAN PLATELET VOLUME 8.4 fl (7.4-10.4); RED BLOOD CELL COUNT 3.56 mill/uL (4.7-6.1); RED CELL DISTRIBUTION WIDTH 15.4 % (11.6-14.6)
[2020-08-15 05:31] LABS: CHLORIDE 110 mEq/L (98-107)
[2020-08-15 05:41] LABS: PHOSPHORUS 3.2 mg/dL (2.5-4.9)
[2020-08-15 07:45] LABS: NUCLEATED RED BLOOD CELLS 30 /100 WBC
[2020-08-15 07:46] LABS: PLATELET ESTIMATE MARKEDLY DECREASED
[2020-08-15 07:50] LABS: PLATELET 48 x1000/uL (130-400)
[2020-08-15] MEDS: LACTULOSE 20G/30ML UDC PO SCH ×3 (08:03→21:05)
[2020-08-15] MEDS: METOPROLOL TARTRATE 25MG TABLET PO SCH ×2 (08:03→20:29)
[2020-08-15] MEDS: RIFAXIMIN 550 MG TABLET PO SCH ×2 (08:03→20:29)
[2020-08-15] MEDS: AMLODIPINE 10MG TABLET PO SCH (08:08)
[2020-08-15] MEDS: DULOXETINE HCL 60MG DR CAPSULE PO SCH (08:08)
[2020-08-15] MEDS: OXYMETAZOLINE HCL NASAL SPRAY 15ML BOTHNSTRLS SCH ×2 (08:08→21:03)
[2020-08-15] MEDS: DOCUSATE SODIUM SUGAR FREE 100MG/10ML UDC NG SCH (08:13)
[2020-08-15] MEDS ORDERED: POTASSIUM CHLORIDE 20MEQ/PACKET NG SCH (09:00)
[2020-08-15 09:11] LABS: GLOMERULAR BASEMENT MEMB AB 4 units (0-20)
[2020-08-15] MEDS ORDERED: SORBITOL 70% SOLN 30ML PO SCH (09:15)
[2020-08-15 09:46] LABS: BG BASE EXCESS 0.7 mmol/L (-2.0-2.0); BG CARBOXYHEMOGLOBIN 0.3 % (0.5-1.5); BG DEOXYHEMOGLOBIN 1.2 % (0.0-5.0); BG FRACTION INSPIRED OXYGEN 80; BG HCO3 ACT 25.9 mmol/L (22.0-26.0); BG METHEMOGLOBIN 0.2 % (0.0-1.5); BG OXYGEN SATURATION 98.8 % (92.0-98.5); BG OXYHEMOGLOBIN 98.3 % (94.0-97.0); BG PCO2 43.9 mmHg (35.0-45.0); BG PH 7.389 (7.350-7.450); BG PO2 188.7 mmHg (75.0-100.0); BG SAMPLE SITE RIGHT RADIAL; BG TOTAL HEMOGLOBIN 13.1 g/dL (12.0-18.0); BG VENT MODE VENT - AC
[2020-08-15 10:59] LABS: INR 1.6; PROTHROMBIN TIME 16.1 sec (9.6-11.0)
[2020-08-15] MEDS: METOCLOPRAMIDE HCL 10MG/2ML VIAL IV SCH ×3 (13:37→23:47)
[2020-08-15 15:10] LABS: ATYPICAL P-ANCA <1:20 titer (Neg:<1:20); CYTOPLASMIC C-ANCA <1:20 titer (Neg:<1:20); PERINUCLEAR P-ANCA <1:20 titer (Neg:<1:20)
[2020-08-15] MEDS: CEFEPIME 500 MG in DEXTROSE 5% WATER 50 ML IV SCH (17:35)
[2020-08-15] MEDS: DEXT 5%/0.9% NACL 1,000 ML IV SCH (17:36)
[2020-08-15] MEDS: FENTANYL CITRATE/PF 1,000 MCG in SODIUM CHLORIDE 0.9% 80 ML IV PRN (23:31)
[2020-08-16] VITALS (50 sets, daily range): BP systolic 114–161; BP diastolic 64–100
[2020-08-16] MEDS: IPRATROPIUM/ALBUTEROL 0.5-3(2.5)MG/3ML NEB HHN SCH ×4 (02:28→20:26)
[2020-08-16] MEDS: METRONIDAZOLE 500 MG PREMIX 100 ML IV SCH ×3 (05:24→20:42)
[2020-08-16 05:46] LABS: HEMATOCRIT. 35.9 % (42.0-52.0); HEMOGLOBIN. 12.2 g/dL (14.0-18.0); MEAN CORPUSCULAR HEMOGLOBIN 34.4 pg (28.0-32.0); MEAN CORPUSCULAR VOLUME 101.5 fL (80.0-94.0); MEAN PLATELET VOLUME 8.3 fl (7.4-10.4); RED BLOOD CELL COUNT 3.54 mill/uL (4.7-6.1); RED CELL DISTRIBUTION WIDTH 15.6 % (11.6-14.6)
[2020-08-16 05:54] LABS: CHLORIDE 117 mEq/L (98-107)
[2020-08-16] MEDS: INSULIN LISPRO 100 UNITS/ML SUBCUT SCH ×4 (06:00→23:22)
[2020-08-16 06:02] LABS: PHOSPHORUS 2.4 mg/dL (2.5-4.9)
[2020-08-16 06:03] LABS: INR 1.4; PROTHROMBIN TIME 14.9 sec (9.6-11.0)
[2020-08-16 06:16] LABS: PLATELET 35 x1000/uL (130-400)
[2020-08-16] MEDS: LACTULOSE 20G/30ML UDC PO SCH ×3 (06:26→21:11)
[2020-08-16] MEDS: BLOOD SUGAR DIAGNOSTIC STRIP TEST SCH ×4 (06:26→23:23)
[2020-08-16] MEDS: METOCLOPRAMIDE HCL 10MG/2ML VIAL IV SCH ×4 (06:26→23:32)
[2020-08-16] MEDS: DOCUSATE SODIUM SUGAR FREE 100MG/10ML UDC NG SCH (08:01)
[2020-08-16 08:10] LABS: BG BASE EXCESS 1.4 mmol/L (-2.0-2.0); BG CARBOXYHEMOGLOBIN 1.7 % (0.5-1.5); BG DEOXYHEMOGLOBIN 2.8 % (0.0-5.0); BG FRACTION INSPIRED OXYGEN 50; BG HCO3 ACT 27.1 mmol/L (22.0-26.0); BG METHEMOGLOBIN 0.4 % (0.0-1.5); BG OXYGEN SATURATION 97.1 % (92.0-98.5); BG OXYHEMOGLOBIN 95.1 % (94.0-97.0); BG PCO2 47.3 mmHg (35.0-45.0); BG PH 7.376 (7.350-7.450); BG PO2 98.3 mmHg (75.0-100.0); BG SAMPLE SITE RIGHT RADIAL; BG TOTAL HEMOGLOBIN 12.4 g/dL (12.0-18.0); BG VENT MODE VENT - AC
[2020-08-16 08:32] LABS: NUCLEATED RED BLOOD CELLS 28 /100 WBC
[2020-08-16 08:33] LABS: PLATELET ESTIMATE MARKEDLY DECREASED
[2020-08-16] MEDS: DULOXETINE HCL 60MG DR CAPSULE PO SCH (08:36)
[2020-08-16] MEDS: RIFAXIMIN 550 MG TABLET PO SCH ×2 (08:40→20:42)
[2020-08-16] MEDS: PANTOPRAZOLE SODIUM 40 MG/VIAL IV SCH (08:41)
[2020-08-16] MEDS: AMLODIPINE 10MG TABLET PO SCH (08:41)
[2020-08-16] MEDS: METOPROLOL TARTRATE 50MG TABLET PO SCH ×2 (08:41→20:42)
[2020-08-16] MEDS: OXYMETAZOLINE HCL NASAL SPRAY 15ML BOTHNSTRLS SCH ×2 (08:41→20:41)
[2020-08-16] MEDS ORDERED: POTASSIUM PHOS,M-BASIC-D-BASIC 15 MMOL in DEXT 5% WATER 245 ML IV SCH (11:00)
[2020-08-16] MEDS: POTASSIUM CHLORIDE INJ 30 MEQ in DEXT 5%/0.2% NACL 1,000 ML IV SCH (14:14)
[2020-08-16 17:06] LABS: ANTI-MYELOPEROXIDASE AB < 9.0 U/mL (0.0-9.0); ANTI-PROTEINASE 3 ABS < 3.5 U/mL (0.0-3.5)
[2020-08-16] MEDS: CEFEPIME 500 MG in DEXTROSE 5% WATER 50 ML IV SCH (18:48)
[2020-08-17] VITALS (50 sets, daily range): BP systolic 115–159; BP diastolic 69–101
[2020-08-17] MEDS: FENTANYL CITRATE/PF 1,000 MCG in SODIUM CHLORIDE 0.9% 80 ML IV PRN (00:41)
[2020-08-17] MEDS: IPRATROPIUM/ALBUTEROL 0.5-3(2.5)MG/3ML NEB HHN SCH ×4 (02:08→20:00)
[2020-08-17] MEDS: POTASSIUM CHLORIDE INJ 30 MEQ in DEXT 5%/0.2% NACL 1,000 ML IV SCH (04:02)
[2020-08-17] MEDS: METRONIDAZOLE 500 MG PREMIX 100 ML IV SCH ×3 (04:02→20:07)
[2020-08-17] MEDS: LACTULOSE 20G/30ML UDC PO SCH ×3 (05:27→21:34)
[2020-08-17] MEDS: INSULIN LISPRO 100 UNITS/ML SUBCUT SCH ×4 (05:27→23:33)
[2020-08-17] MEDS: METOCLOPRAMIDE HCL 10MG/2ML VIAL IV SCH ×4 (05:27→23:32)
[2020-08-17] MEDS: BLOOD SUGAR DIAGNOSTIC STRIP TEST SCH ×4 (05:28→23:33)
[2020-08-17 05:31] LABS: HEMATOCRIT. 35.4 % (42.0-52.0); HEMOGLOBIN. 11.9 g/dL (14.0-18.0); MEAN CORPUSCULAR HEMOGLOBIN 34.2 pg (28.0-32.0); MEAN CORPUSCULAR VOLUME 101.5 fL (80.0-94.0); MEAN PLATELET VOLUME 8.5 fl (7.4-10.4); RED BLOOD CELL COUNT 3.49 mill/uL (4.7-6.1); RED CELL DISTRIBUTION WIDTH 16.3 % (11.6-14.6)
[2020-08-17 05:38] LABS: CHLORIDE 119 mEq/L (98-107)
[2020-08-17 05:45] LABS: PHOSPHORUS 2.2 mg/dL (2.5-4.9)
[2020-08-17 06:02] LABS: PLATELET 19 x1000/uL (130-400)
[2020-08-17 07:37] LABS: BG BASE EXCESS 2.1 mmol/L (-2.0-2.0); BG CARBOXYHEMOGLOBIN 1.2 % (0.5-1.5); BG DEOXYHEMOGLOBIN 5.2 % (0.0-5.0); BG HCO3 ACT 28.8 mmol/L (22.0-26.0); BG METHEMOGLOBIN 0.4 % (0.0-1.5); BG OXYGEN SATURATION 94.7 % (92.0-98.5); BG OXYHEMOGLOBIN 93.2 % (94.0-97.0); BG PCO2 54.2 mmHg (35.0-45.0); BG PH 7.343 (7.350-7.450); BG PO2 77.7 mmHg (75.0-100.0); BG SAMPLE SITE RIGHT RADIAL; BG TOTAL HEMOGLOBIN 12.4 g/dL (12.0-18.0); BG VENT MODE VENT - AC
[2020-08-17 07:52] LABS: NUCLEATED RED BLOOD CELLS 8 /100 WBC
[2020-08-17 07:53] LABS: PLATELET ESTIMATE MARKEDLY DECREASED
[2020-08-17] MEDS: PANTOPRAZOLE SODIUM 40 MG/VIAL IV SCH (08:56)
[2020-08-17] MEDS: METOPROLOL TARTRATE 50MG TABLET PO SCH ×2 (08:57→20:03)
[2020-08-17] MEDS: RIFAXIMIN 550 MG TABLET PO SCH ×2 (08:57→20:03)
[2020-08-17] MEDS: AMLODIPINE 10MG TABLET PO SCH (08:57)
[2020-08-17] MEDS: DULOXETINE HCL 60MG DR CAPSULE PO SCH (08:57)
[2020-08-17] MEDS: OXYMETAZOLINE HCL NASAL SPRAY 15ML BOTHNSTRLS SCH (09:00)
[2020-08-17] MEDS ORDERED: POTASSIUM PHOS,M-BASIC-D-BASIC 20 MMOL in DEXT 5% WATER 243.3333 ML IV SCH (11:00)
[2020-08-17] MEDS: DEXT 5% WATER + KCL 20MEQ/L 1,000 ML IV SCH (12:11)
[2020-08-17] MEDS: CEFEPIME 500 MG in DEXTROSE 5% WATER 50 ML IV SCH (17:24)
[2020-08-17] MEDS: SULFACETAMIDE SODIUM 10% OPHTH DROPS 15ML BOTHEYE SCH (21:13)
[2020-08-18] VITALS (47 sets, daily range): BP systolic 108–151; BP diastolic 72–97
[2020-08-18] MEDS ORDERED: METOPROLOL TARTRATE 5MG/5ML VIAL IV NR (01:36)
[2020-08-18] MEDS: IPRATROPIUM/ALBUTEROL 0.5-3(2.5)MG/3ML NEB HHN SCH ×4 (01:44→20:07)
[2020-08-18] MEDS ORDERED: AMIODARONE HCL 50MG/ML 3ML VIAL IV ONE (01:56)
[2020-08-18] MEDS ORDERED: AMIODARONE HCL 150 MG in DEXT 5% WATER 100 ML IV NR (02:00)
[2020-08-18] MEDS: DEXT 5% WATER + KCL 20MEQ/L 1,000 ML IV SCH (02:23)
[2020-08-18] MEDS: LACTULOSE 20G/30ML UDC PO SCH ×3 (05:10→21:04)
[2020-08-18] MEDS: METOCLOPRAMIDE HCL 10MG/2ML VIAL IV SCH ×3 (05:10→17:36)
[2020-08-18] MEDS: BLOOD SUGAR DIAGNOSTIC STRIP TEST SCH ×3 (05:11→17:36)
[2020-08-18] MEDS: INSULIN LISPRO 100 UNITS/ML SUBCUT SCH ×3 (05:11→17:35)
[2020-08-18 05:24] LABS: HEMATOCRIT. 33.2 % (42.0-52.0); MEAN CORPUSCULAR HEMOGLOBIN 34.1 pg (28.0-32.0); MEAN CORPUSCULAR VOLUME 102.6 fL (80.0-94.0); MEAN PLATELET VOLUME 7.9 fl (7.4-10.4); RED BLOOD CELL COUNT 3.24 mill/uL (4.7-6.1); RED CELL DISTRIBUTION WIDTH 16.2 % (11.6-14.6)
[2020-08-18 05:36] LABS: PLATELET 41 x1000/uL (130-400)
[2020-08-18 05:41] LABS: CHLORIDE 117 mEq/L (98-107)
[2020-08-18 05:49] LABS: PHOSPHORUS 2.4 mg/dL (2.5-4.9)
[2020-08-18 08:43] LABS: BG BASE EXCESS 3.6 mmol/L (-2.0-2.0); BG CARBOXYHEMOGLOBIN 0.9 % (0.5-1.5); BG DEOXYHEMOGLOBIN 1.9 % (0.0-5.0); BG FRACTION INSPIRED OXYGEN 40; BG HCO3 ACT 28.4 mmol/L (22.0-26.0); BG METHEMOGLOBIN 0.5 % (0.0-1.5); BG OXYGEN SATURATION 98.1 % (92.0-98.5); BG OXYHEMOGLOBIN 96.7 % (94.0-97.0); BG PCO2 43.4 mmHg (35.0-45.0); BG PH 7.433 (7.350-7.450); BG PO2 117.9 mmHg (75.0-100.0); BG SAMPLE SITE RIGHT RADIAL; BG TOTAL HEMOGLOBIN 11.7 g/dL (12.0-18.0); BG VENT MODE VENT - SIMV
[2020-08-18] MEDS: RIFAXIMIN 550 MG TABLET PO SCH ×2 (08:56→20:44)
[2020-08-18] MEDS: PANTOPRAZOLE SODIUM 40 MG/VIAL IV SCH (08:56)
[2020-08-18] MEDS: METOPROLOL TARTRATE 25MG TABLET PO SCH ×2 (08:56→20:44)
[2020-08-18] MEDS: AMLODIPINE 10MG TABLET PO SCH (08:56)
[2020-08-18] MEDS: SULFACETAMIDE SODIUM 10% OPHTH DROPS 15ML BOTHEYE SCH ×3 (08:59→17:36)
[2020-08-18 10:08] LABS: NUCLEATED RED BLOOD CELLS 1 /100 WBC; PLATELET ESTIMATE MARKEDLY DECREASED
[2020-08-18] MEDS ORDERED: FUROSEMIDE 20MG/2ML VIAL IVP SCH (12:00)
[2020-08-18] MEDS: DEXTROSE 5% WATER 1,000 ML IV SCH (12:40)
[2020-08-18] MEDS: DULOXETINE HCL 60MG DR CAPSULE PO SCH (12:40)
[2020-08-18] MEDS ORDERED: POTASSIUM CHLORIDE INJ 40 MEQ in DEXT 5% WATER 250 ML IV SCH (13:00)
[2020-08-18] MEDS ORDERED: POTASSIUM PHOS,M-BASIC-D-BASIC 15 MMOL in DEXT 5% WATER 245 ML IV SCH (13:00)
[2020-08-18] MEDS ORDERED: METOPROLOL TARTRATE 5MG/5ML VIAL IV PRN (17:00)
[2020-08-18] MEDS: CEFEPIME 500 MG in DEXTROSE 5% WATER 50 ML IV SCH (17:36)
[2020-08-19] VITALS (40 sets, daily range): BP systolic 90–155; BP diastolic 51–105
[2020-08-19] MEDS: METOCLOPRAMIDE HCL 10MG/2ML VIAL IV SCH ×4 (00:47→17:55)
[2020-08-19] MEDS: BLOOD SUGAR DIAGNOSTIC STRIP TEST SCH ×4 (00:47→17:42)
[2020-08-19] MEDS: IPRATROPIUM/ALBUTEROL 0.5-3(2.5)MG/3ML NEB HHN SCH ×3 (01:49→20:07)
[2020-08-19] MEDS: INSULIN LISPRO 100 UNITS/ML SUBCUT SCH ×4 (05:07→17:42)
[2020-08-19] MEDS: LACTULOSE 20G/30ML UDC PO SCH ×3 (05:07→21:17)
[2020-08-19 05:52] LABS: CHLORIDE 116 mEq/L (98-107)
[2020-08-19 05:53] LABS: HEMATOCRIT. 33.7 % (42.0-52.0); HEMOGLOBIN. 11.3 g/dL (14.0-18.0); MEAN CORPUSCULAR HEMOGLOBIN 34.3 pg (28.0-32.0); MEAN CORPUSCULAR VOLUME 101.8 fL (80.0-94.0); MEAN PLATELET VOLUME 10.8 fl (7.4-10.4); PLATELET 55 x1000/uL (130-400); RED BLOOD CELL COUNT 3.31 mill/uL (4.7-6.1); RED CELL DISTRIBUTION WIDTH 15.9 % (11.6-14.6)
[2020-08-19 06:00] LABS: PHOSPHORUS 2.5 mg/dL (2.5-4.9)
[2020-08-19] MEDS: RIFAXIMIN 550 MG TABLET PO SCH (07:48)
[2020-08-19] MEDS: AMLODIPINE 10MG TABLET PO SCH (07:48)
[2020-08-19] MEDS: PANTOPRAZOLE SODIUM 40 MG/VIAL IV SCH (07:48)
[2020-08-19] MEDS: SULFACETAMIDE SODIUM 10% OPHTH DROPS 15ML BOTHEYE SCH ×3 (07:49→17:56)
[2020-08-19] MEDS: DULOXETINE HCL 60MG DR CAPSULE PO SCH (07:49)
[2020-08-19] MEDS: METOPROLOL TARTRATE 25MG TABLET PO SCH (07:49)
[2020-08-19] MEDS: DEXTROSE 5% WATER 1,000 ML IV SCH (07:50)
[2020-08-19] MEDS ORDERED: DIGOXIN 500MCG/2ML AMP IV SCH (08:30)
[2020-08-19 08:39] LABS: BG CARBOXYHEMOGLOBIN 0.6 % (0.5-1.5); BG DEOXYHEMOGLOBIN 5.1 % (0.0-5.0); BG FRACTION INSPIRED OXYGEN 30; BG METHEMOGLOBIN 0.1 % (0.0-1.5); BG OXYGEN SATURATION 94.9 % (92.0-98.5); BG OXYHEMOGLOBIN 94.2 % (94.0-97.0); BG PCO2 26.5 mmHg (35.0-45.0); BG PH 7.424 (7.350-7.450); BG PO2 82.5 mmHg (75.0-100.0); BG TOTAL HEMOGLOBIN 12.3 g/dL (12.0-18.0); BG VENT MODE VENT - SIMV
[2020-08-19 09:02] LABS: NUCLEATED RED BLOOD CELLS 4 /100 WBC
[2020-08-19 09:03] LABS: PLATELET ESTIMATE MARKEDLY DECREASED
[2020-08-19] MEDS ORDERED: MAGNESIUM 1 G PREMIX 100 ML IV SCH (10:00)
[2020-08-19] MEDS ORDERED: FUROSEMIDE 20MG/2ML VIAL IVP SCH (10:00)
[2020-08-19] MEDS: FENTANYL CITRATE/PF 1,000 MCG in SODIUM CHLORIDE 0.9% 80 ML IV PRN (10:17)
[2020-08-19] MEDS: MIDAZOLAM HCL 100 MG in DEXT 5% WATER 80 ML IV PRN (10:18)
[2020-08-19 15:41] LABS: CHLORIDE 116 mEq/L (98-107)
[2020-08-19 16:04] LABS: DIGOXIN 1.5 ng/mL (0.9-2.0)
[2020-08-19] MEDS: CEFEPIME 500 MG in DEXTROSE 5% WATER 50 ML IV SCH (17:56)
[2020-08-19] MEDS ORDERED: LORAZEPAM 2MG/ML CPJ IV PRN (18:15)
[2020-08-19] MEDS ORDERED: MORPHINE SULFATE 2 MG/ML CPJ (NOT FOR IM USE) IV PRN (18:15)
[2020-08-19] MEDS: METOPROLOL TARTRATE 100MG TABLET PO SCH ×2 (21:00→21:16)
[2020-08-20] VITALS (38 sets, daily range): BP systolic 112–153; BP diastolic 27–104
[2020-08-20] MEDS: METOCLOPRAMIDE HCL 10MG/2ML VIAL IV SCH ×4 (00:05→18:39)
[2020-08-20] MEDS: BLOOD SUGAR DIAGNOSTIC STRIP TEST SCH ×4 (00:09→18:39)
[2020-08-20] MEDS: IPRATROPIUM/ALBUTEROL 0.5-3(2.5)MG/3ML NEB HHN SCH ×3 (01:07→19:48)
[2020-08-20] MEDS: DEXTROSE 5% WATER 1,000 ML IV SCH ×2 (04:00→09:41)
[2020-08-20] MEDS: INSULIN LISPRO 100 UNITS/ML SUBCUT SCH ×4 (05:47→18:00)
[2020-08-20] MEDS: LACTULOSE 20G/30ML UDC PO SCH ×3 (05:48→22:13)
[2020-08-20 06:00] LABS: HEMATOCRIT. 33.9 % (42.0-52.0); HEMOGLOBIN. 11.3 g/dL (14.0-18.0); MEAN CORPUSCULAR HEMOGLOBIN 33.9 pg (28.0-32.0); MEAN CORPUSCULAR VOLUME 101.6 fL (80.0-94.0); MEAN PLATELET VOLUME 9.4 fl (7.4-10.4); RED BLOOD CELL COUNT 3.33 mill/uL (4.7-6.1); RED CELL DISTRIBUTION WIDTH 16.5 % (11.6-14.6)
[2020-08-20 06:06] LABS: CHLORIDE 115 mEq/L (98-107)
[2020-08-20 06:09] LABS: PHOSPHORUS 3.4 mg/dL (2.5-4.9)
[2020-08-20 07:47] LABS: NUCLEATED RED BLOOD CELLS 2 /100 WBC
[2020-08-20 07:48] LABS: PLATELET 41 x1000/uL (130-400); PLATELET ESTIMATE MARKEDLY DECREASED
[2020-08-20] MEDS: DULOXETINE HCL 60MG DR CAPSULE PO SCH (09:00)
[2020-08-20 09:40] LABS: BG BASE EXCESS 3.9 mmol/L (-2.0-2.0); BG CARBOXYHEMOGLOBIN 0.9 % (0.5-1.5); BG DEOXYHEMOGLOBIN 2.7 % (0.0-5.0); BG FRACTION INSPIRED OXYGEN 30; BG HCO3 ACT 27.1 mmol/L (22.0-26.0); BG METHEMOGLOBIN 0.2 % (0.0-1.5); BG OXYGEN SATURATION 97.3 % (92.0-98.5); BG OXYHEMOGLOBIN 96.2 % (94.0-97.0); BG PH 7.495 (7.350-7.450); BG PO2 98.3 mmHg (75.0-100.0); BG SAMPLE SITE LEFT RADIAL; BG TOTAL HEMOGLOBIN 11.8 g/dL (12.0-18.0); BG VENT MODE VENT - AC
[2020-08-20] MEDS: METOPROLOL TARTRATE 100MG TABLET PO SCH ×2 (09:40→22:13)
[2020-08-20] MEDS: AMLODIPINE 10MG TABLET PO SCH (09:40)
[2020-08-20] MEDS: PANTOPRAZOLE SODIUM 40 MG/VIAL IV SCH (09:40)
[2020-08-20] MEDS: SULFACETAMIDE SODIUM 10% OPHTH DROPS 15ML BOTHEYE SCH ×3 (09:46→18:39)
[2020-08-20] MEDS ORDERED: POTASSIUM CHLORIDE 20MEQ/PACKET PO NR (10:00)
[2020-08-20] MEDS: DIGOXIN 125MCG TABLET PO SCH (18:41)
[2020-08-21] VITALS (45 sets, daily range): BP systolic 123–157; BP diastolic 65–118
[2020-08-21] MEDS: METOCLOPRAMIDE HCL 10MG/2ML VIAL IV SCH ×5 (00:35→23:42)
[2020-08-21] MEDS: BLOOD SUGAR DIAGNOSTIC STRIP TEST SCH ×4 (00:35→18:01)
[2020-08-21] MEDS: INSULIN LISPRO 100 UNITS/ML SUBCUT SCH ×4 (00:37→18:47)
[2020-08-21] MEDS: IPRATROPIUM/ALBUTEROL 0.5-3(2.5)MG/3ML NEB HHN SCH ×4 (01:56→21:01)
[2020-08-21] MEDS: DEXTROSE 5% WATER 1,000 ML IV SCH ×2 (04:22→20:00)
[2020-08-21 05:41] LABS: HEMATOCRIT. 34.5 % (42.0-52.0); HEMOGLOBIN. 11.4 g/dL (14.0-18.0); MEAN CORPUSCULAR HEMOGLOBIN 33.7 pg (28.0-32.0); MEAN CORPUSCULAR VOLUME 101.4 fL (80.0-94.0); MEAN PLATELET VOLUME 9.5 fl (7.4-10.4); PLATELET 56 x1000/uL (130-400); RED CELL DISTRIBUTION WIDTH 16.1 % (11.6-14.6)
[2020-08-21] MEDS: LACTULOSE 20G/30ML UDC PO SCH ×3 (05:44→23:05)
[2020-08-21 05:46] LABS: CHLORIDE 116 mEq/L (98-107)
[2020-08-21 06:07] LABS: DIGOXIN 0.8 ng/mL (0.9-2.0)
[2020-08-21] MEDS: DULOXETINE HCL 60MG DR CAPSULE PO SCH (09:00)
[2020-08-21 09:17] LABS: BG DEOXYHEMOGLOBIN 1.4 % (0.0-5.0); BG FRACTION INSPIRED OXYGEN 30; BG HCO3 ACT 27.9 mmol/L (22.0-26.0); BG METHEMOGLOBIN 0.4 % (0.0-1.5); BG OXYGEN SATURATION 98.6 % (92.0-98.5); BG OXYHEMOGLOBIN 97.2 % (94.0-97.0); BG PCO2 35.1 mmHg (35.0-45.0); BG PH 7.518 (7.350-7.450); BG PO2 131.5 mmHg (75.0-100.0); BG SAMPLE SITE RIGHT RADIAL; BG TOTAL HEMOGLOBIN 12.4 g/dL (12.0-18.0); BG VENT MODE VENT - AC
[2020-08-21] MEDS: METOPROLOL TARTRATE 100MG TABLET PO SCH ×2 (09:19→21:41)
[2020-08-21] MEDS: PANTOPRAZOLE SODIUM 40 MG/VIAL IV SCH (09:19)
[2020-08-21] MEDS: AMLODIPINE 10MG TABLET PO SCH (09:19)
[2020-08-21] MEDS ORDERED: FUROSEMIDE 20MG/2ML VIAL IVP SCH (10:00)
[2020-08-21 10:55] LABS: NUCLEATED RED BLOOD CELLS 5 /100 WBC
[2020-08-21 10:57] LABS: PLATELET ESTIMATE DECREASED
[2020-08-21] MEDS: METHYLPREDNISOLONE SOD SUCC 125 MG/2 ML VIAL IV SCH ×2 (13:47→23:05)
[2020-08-21] MEDS: DIGOXIN 125MCG TABLET PO SCH (18:46)
[2020-08-22] VITALS (52 sets, daily range): BP systolic 106–152; BP diastolic 56–100
[2020-08-22] MEDS: BLOOD SUGAR DIAGNOSTIC STRIP TEST SCH ×4 (00:47→18:36)
[2020-08-22] MEDS: INSULIN LISPRO 100 UNITS/ML SUBCUT SCH ×4 (01:13→18:33)
[2020-08-22] MEDS: IPRATROPIUM/ALBUTEROL 0.5-3(2.5)MG/3ML NEB HHN SCH ×4 (01:34→20:47)
[2020-08-22] MEDS: DEXTROSE 5% WATER 1,000 ML IV SCH (02:33)
[2020-08-22 05:03] LABS: BASOPHILS % 0.1 % (0.0-2.0); HEMATOCRIT. 35.2 % (42.0-52.0); HEMOGLOBIN. 11.6 g/dL (14.0-18.0); LYMPHOCYTES % 9.8 % (20.0-50.0); MEAN CORPUSCULAR HEMOGLOBIN 33.6 pg (28.0-32.0); MEAN CORPUSCULAR VOLUME 101.6 fL (80.0-94.0); MEAN PLATELET VOLUME 10.4 fl (7.4-10.4); MONOCYTES % 2.2 % (2.0-8.0); NEUTROPHILS % 87.9 % (40.0-76.0); PLATELET 78 x1000/uL (130-400); RED BLOOD CELL COUNT 3.47 mill/uL (4.7-6.1); RED CELL DISTRIBUTION WIDTH 16.3 % (11.6-14.6)
[2020-08-22 05:09] LABS: CHLORIDE 114 mEq/L (98-107); INR 1.2; PARTIAL THROMBOPLASTIN TIME 24.9 sec (23.4-31.0); PROTHROMBIN TIME 12.6 sec (9.6-11.0)
[2020-08-22 05:16] LABS: PHOSPHORUS 3.3 mg/dL (2.5-4.9)
[2020-08-22] MEDS: LACTULOSE 20G/30ML UDC PO SCH ×2 (06:00→08:50)
[2020-08-22] MEDS: METOCLOPRAMIDE HCL 10MG/2ML VIAL IV SCH ×3 (07:04→18:30)
[2020-08-22] MEDS: METHYLPREDNISOLONE SOD SUCC 125 MG/2 ML VIAL IV SCH ×3 (07:04→22:35)
[2020-08-22 08:36] LABS: BG BASE EXCESS 0.7 mmol/L (-2.0-2.0); BG CARBOXYHEMOGLOBIN 0.3 % (0.5-1.5); BG DEOXYHEMOGLOBIN 3.2 % (0.0-5.0); BG FRACTION INSPIRED OXYGEN 30; BG HCO3 ACT 23.7 mmol/L (22.0-26.0); BG METHEMOGLOBIN 0.1 % (0.0-1.5); BG OXYGEN SATURATION 96.8 % (92.0-98.5); BG OXYHEMOGLOBIN 96.4 % (94.0-97.0); BG PCO2 32.5 mmHg (35.0-45.0); BG PH 7.481 (7.350-7.450); BG PO2 95.4 mmHg (75.0-100.0); BG SAMPLE SITE RIGHT RADIAL; BG TOTAL HEMOGLOBIN 11.3 g/dL (12.0-18.0); BG VENT MODE VENT - SIMV
[2020-08-22] MEDS: PANTOPRAZOLE SODIUM 40 MG/VIAL IV SCH (08:50)
[2020-08-22] MEDS: METOPROLOL TARTRATE 100MG TABLET PO SCH ×2 (08:50→21:00)
[2020-08-22] MEDS: DULOXETINE HCL 60MG DR CAPSULE PO SCH (08:50)
[2020-08-22] MEDS: AMLODIPINE 10MG TABLET PO SCH (08:52)
[2020-08-22 10:04] LABS: BG BASE EXCESS 5.3 mmol/L (-2.0-2.0); BG CARBOXYHEMOGLOBIN 0.4 % (0.5-1.5); BG DEOXYHEMOGLOBIN 2.4 % (0.0-5.0); BG FRACTION INSPIRED OXYGEN 30; BG HCO3 ACT 28.8 mmol/L (22.0-26.0); BG METHEMOGLOBIN 0.3 % (0.0-1.5); BG OXYGEN SATURATION 97.6 % (92.0-98.5); BG OXYHEMOGLOBIN 96.9 % (94.0-97.0); BG PCO2 37.9 mmHg (35.0-45.0); BG PH 7.498 (7.350-7.450); BG PO2 100.5 mmHg (75.0-100.0); BG SAMPLE SITE RIGHT RADIAL; BG TOTAL HEMOGLOBIN 12.1 g/dL (12.0-18.0); BG VENT MODE VENT - CPAP
[2020-08-22] MEDS ORDERED: FUROSEMIDE 20MG/2ML VIAL IVP SCH (10:45)
[2020-08-22 13:06] LABS: ANTI-MYELOPEROXIDASE AB < 9.0 U/mL (0.0-9.0); ANTI-PROTEINASE 3 ABS < 3.5 U/mL (0.0-3.5)
[2020-08-22] MEDS: RIFAXIMIN 550 MG TABLET PO SCH ×2 (14:37→21:00)
[2020-08-22 15:08] LABS: ANTI-CARDIOLIPIN AB IGG < 9 GPL U/mL (0-14); ATYPICAL P-ANCA <1:20 titer (Neg:<1:20); CYTOPLASMIC C-ANCA <1:20 titer (Neg:<1:20); PERINUCLEAR P-ANCA <1:20 titer (Neg:<1:20)
[2020-08-22] MEDS: DIGOXIN 125MCG TABLET PO SCH (18:30)
[2020-08-23] VITALS (36 sets, daily range): BP systolic 112–148; BP diastolic 64–107
[2020-08-23] MEDS: IPRATROPIUM/ALBUTEROL 0.5-3(2.5)MG/3ML NEB HHN SCH ×4 (01:13→20:26)
[2020-08-23] MEDS: BLOOD SUGAR DIAGNOSTIC STRIP TEST SCH (01:30)
[2020-08-23] MEDS: METOCLOPRAMIDE HCL 10MG/2ML VIAL IV SCH ×4 (01:30→17:11)
[2020-08-23] MEDS: INSULIN LISPRO 100 UNITS/ML SUBCUT SCH ×3 (01:46→18:14)
[2020-08-23] MEDS: METHYLPREDNISOLONE SOD SUCC 125 MG/2 ML VIAL IV SCH ×3 (05:35→21:26)
[2020-08-23 06:49] LABS: CHLORIDE 115 mEq/L (98-107)
[2020-08-23 06:54] LABS: BASOPHILS % 0.2 % (0.0-2.0); HEMATOCRIT. 33.6 % (42.0-52.0); HEMOGLOBIN. 11.3 g/dL (14.0-18.0); LYMPHOCYTES % 8.4 % (20.0-50.0); MEAN CORPUSCULAR HEMOGLOBIN 33.8 pg (28.0-32.0); MEAN CORPUSCULAR VOLUME 100.7 fL (80.0-94.0); MEAN PLATELET VOLUME 9.6 fl (7.4-10.4); MONOCYTES % 3.7 % (2.0-8.0); NEUTROPHILS % 87.7 % (40.0-76.0); PLATELET 155 x1000/uL (130-400); RED BLOOD CELL COUNT 3.33 mill/uL (4.7-6.1); RED CELL DISTRIBUTION WIDTH 15.9 % (11.6-14.6)
[2020-08-23 06:55] LABS: PHOSPHORUS 3.7 mg/dL (2.5-4.9)
[2020-08-23] MEDS: METOPROLOL TARTRATE 100MG TABLET PO SCH ×2 (08:17→21:26)
[2020-08-23] MEDS: DULOXETINE HCL 60MG DR CAPSULE PO SCH (08:17)
[2020-08-23] MEDS: RIFAXIMIN 550 MG TABLET PO SCH ×2 (08:17→21:26)
[2020-08-23] MEDS: AMLODIPINE 10MG TABLET PO SCH (08:17)
[2020-08-23] MEDS: PANTOPRAZOLE SODIUM 40 MG/VIAL IV SCH (08:17)
[2020-08-23] MEDS: LACTULOSE 20G/30ML UDC PO SCH (08:17)
[2020-08-23] MEDS: DEXTROSE 5% WATER 1,000 ML IV SCH (11:46)
[2020-08-23 13:06] LABS: PTT-LA 35.9 sec (0.0-51.9)
[2020-08-23] MEDS: DIGOXIN 125MCG TABLET PO SCH (17:11)
[2020-08-24] VITALS (12 sets, daily range): BP systolic 123–151; BP diastolic 64–102
[2020-08-24] MEDS: METOCLOPRAMIDE HCL 10MG/2ML VIAL IV SCH ×4 (00:57→17:52)
[2020-08-24] MEDS: DEXTROSE 5% WATER 1,000 ML IV SCH ×3 (00:58→20:36)
[2020-08-24] MEDS: IPRATROPIUM/ALBUTEROL 0.5-3(2.5)MG/3ML NEB HHN SCH ×4 (02:27→20:27)
[2020-08-24] MEDS: INSULIN LISPRO 100 UNITS/ML SUBCUT SCH ×4 (06:00→17:53)
[2020-08-24 06:08] LABS: DRVVT MIX LA 39.5 sec (0.0-47.0); LUPUS ANTICOAG INTERPRETATION Comment: (.)
[2020-08-24 06:09] LABS: CHLORIDE 115 mEq/L (98-107)
[2020-08-24 06:19] LABS: PHOSPHORUS 3.2 mg/dL (2.5-4.9)
[2020-08-24 06:23] LABS: BASOPHILS % 0.3 % (0.0-2.0); EOSINOPHILS % 0.1 % (0.0-5.0); HEMATOCRIT. 34.3 % (42.0-52.0); HEMOGLOBIN. 11.4 g/dL (14.0-18.0); LYMPHOCYTES % 7.3 % (20.0-50.0); MEAN CORPUSCULAR HEMOGLOBIN 33.1 pg (28.0-32.0); MEAN CORPUSCULAR VOLUME 99.5 fL (80.0-94.0); MONOCYTES % 4.2 % (2.0-8.0); NEUTROPHILS % 88.1 % (40.0-76.0); PLATELET 159 x1000/uL (130-400); RED BLOOD CELL COUNT 3.45 mill/uL (4.7-6.1); RED CELL DISTRIBUTION WIDTH 15.8 % (11.6-14.6)
[2020-08-24] MEDS: METHYLPREDNISOLONE SOD SUCC 125 MG/2 ML VIAL IV SCH ×3 (07:20→22:34)
[2020-08-24] MEDS: METOPROLOL TARTRATE 100MG TABLET PO SCH ×2 (09:06→20:35)
[2020-08-24] MEDS: LACTULOSE 20G/30ML UDC PO SCH (09:06)
[2020-08-24] MEDS: RIFAXIMIN 550 MG TABLET PO SCH ×2 (09:06→20:51)
[2020-08-24] MEDS: PANTOPRAZOLE SODIUM 40 MG/VIAL IV SCH (09:06)
[2020-08-24] MEDS: AMLODIPINE 10MG TABLET PO SCH (09:06)
[2020-08-24] MEDS: DULOXETINE HCL 60MG DR CAPSULE PO SCH (09:06)
[2020-08-24] MEDS: BLOOD SUGAR DIAGNOSTIC STRIP TEST SCH ×3 (12:00→17:37)
[2020-08-24] MEDS: ENOXAPARIN 80MG/0.8ML SYR SUBCUT SCH ×2 (12:05→20:35)
[2020-08-24] MEDS: LOSARTAN POTASSIUM 25 MG TABLET PO SCH (12:05)
[2020-08-24] MEDS: DIGOXIN 125MCG TABLET PO SCH (17:52)
[2020-08-25] VITALS (13 sets, daily range): BP systolic 117–158; BP diastolic 67–102
[2020-08-25] MEDS: METOCLOPRAMIDE HCL 10MG/2ML VIAL IV SCH ×5 (00:58→23:21)
[2020-08-25] MEDS: BLOOD SUGAR DIAGNOSTIC STRIP TEST SCH ×5 (00:58→23:21)
[2020-08-25] MEDS: INSULIN LISPRO 100 UNITS/ML SUBCUT SCH ×5 (01:08→23:37)
[2020-08-25] MEDS: IPRATROPIUM/ALBUTEROL 0.5-3(2.5)MG/3ML NEB HHN SCH ×2 (02:08→20:46)
[2020-08-25 04:43] LABS: BASOPHILS % 0.6 % (0.0-2.0); HEMATOCRIT. 36.8 % (42.0-52.0); HEMOGLOBIN. 12.1 g/dL (14.0-18.0); LYMPHOCYTES % 7.4 % (20.0-50.0); MEAN CORPUSCULAR HEMOGLOBIN 32.9 pg (28.0-32.0); MEAN CORPUSCULAR VOLUME 100.5 fL (80.0-94.0); MEAN PLATELET VOLUME 9.5 fl (7.4-10.4); MONOCYTES % 2.9 % (2.0-8.0); NEUTROPHILS % 89.1 % (40.0-76.0); PLATELET 142 x1000/uL (130-400); RED BLOOD CELL COUNT 3.66 mill/uL (4.7-6.1); RED CELL DISTRIBUTION WIDTH 15.6 % (11.6-14.6)
[2020-08-25 04:49] LABS: CHLORIDE 112 mEq/L (98-107)
[2020-08-25] MEDS: METHYLPREDNISOLONE SOD SUCC 125 MG/2 ML VIAL IV SCH ×2 (05:15→13:33)
[2020-08-25] MEDS: DEXTROSE 5% WATER 1,000 ML IV SCH ×2 (05:38→16:55)
[2020-08-25 08:11] LABS: *CREATININE RANDOM URINE 52.7 mg/dL (Not Estab.); MICROALBUMIN RANDOM URINE 39.7 ug/mL (Not Estab.)
[2020-08-25] MEDS: LACTULOSE 20G/30ML UDC PO SCH (10:22)
[2020-08-25] MEDS: PANTOPRAZOLE SODIUM 40 MG/VIAL IV SCH (10:22)
[2020-08-25] MEDS: DULOXETINE HCL 60MG DR CAPSULE PO SCH (10:22)
[2020-08-25] MEDS: LOSARTAN POTASSIUM 25 MG TABLET PO SCH (10:23)
[2020-08-25] MEDS: METOPROLOL TARTRATE 100MG TABLET PO SCH ×2 (10:23→21:16)
[2020-08-25] MEDS: ENOXAPARIN 80MG/0.8ML SYR SUBCUT SCH ×2 (10:24→21:17)
[2020-08-25] MEDS: AMLODIPINE 10MG TABLET PO SCH (10:24)
[2020-08-25] MEDS: RIFAXIMIN 550 MG TABLET PO SCH ×2 (10:28→21:16)
[2020-08-25] MEDS ORDERED: FUROSEMIDE 20MG/2ML VIAL IVP SCH (11:00)
[2020-08-25] MEDS: DIGOXIN 125MCG TABLET PO SCH (17:32)
[2020-08-25] MEDS: METHYLPREDNISOLONE SOD SUCC 40 MG/ML VIAL IV SCH (21:17)
[2020-08-26] VITALS (12 sets, daily range): BP systolic 104–139; BP diastolic 60–96
[2020-08-26] MEDS: IPRATROPIUM/ALBUTEROL 0.5-3(2.5)MG/3ML NEB HHN SCH ×3 (01:56→20:32)
[2020-08-26] MEDS: DEXTROSE 5% WATER 1,000 ML IV SCH ×2 (03:54→15:21)
[2020-08-26] MEDS: METOCLOPRAMIDE HCL 10MG/2ML VIAL IV SCH ×4 (04:46→23:42)
[2020-08-26] MEDS: METHYLPREDNISOLONE SOD SUCC 40 MG/ML VIAL IV SCH ×3 (04:46→21:20)
[2020-08-26] MEDS: BLOOD SUGAR DIAGNOSTIC STRIP TEST SCH ×4 (04:53→23:38)
[2020-08-26] MEDS: INSULIN LISPRO 100 UNITS/ML SUBCUT SCH ×3 (05:28→17:39)
[2020-08-26 07:15] LABS: BASOPHILS % 0.3 % (0.0-2.0); HEMATOCRIT. 36.7 % (42.0-52.0); HEMOGLOBIN. 12.2 g/dL (14.0-18.0); LYMPHOCYTES % 8.1 % (20.0-50.0); MEAN CORPUSCULAR HEMOGLOBIN 33.1 pg (28.0-32.0); MEAN CORPUSCULAR VOLUME 99.9 fL (80.0-94.0); MEAN PLATELET VOLUME 9.6 fl (7.4-10.4); MONOCYTES % 3.8 % (2.0-8.0); NEUTROPHILS % 87.8 % (40.0-76.0); PLATELET 135 x1000/uL (130-400); RED BLOOD CELL COUNT 3.67 mill/uL (4.7-6.1); RED CELL DISTRIBUTION WIDTH 15.4 % (11.6-14.6)
[2020-08-26 07:23] LABS: CHLORIDE 108 mEq/L (98-107)
[2020-08-26 07:38] LABS: PHOSPHORUS 3.5 mg/dL (2.5-4.9)
[2020-08-26 07:54] LABS: DIGOXIN 0.9 ng/mL (0.9-2.0)
[2020-08-26] MEDS: RIFAXIMIN 550 MG TABLET PO SCH ×2 (08:03→21:19)
[2020-08-26] MEDS: AMLODIPINE 10MG TABLET PO SCH (08:04)
[2020-08-26] MEDS: METOPROLOL TARTRATE 100MG TABLET PO SCH ×2 (08:04→21:10)
[2020-08-26] MEDS: LOSARTAN POTASSIUM 25 MG TABLET PO SCH (08:04)
[2020-08-26] MEDS: DULOXETINE HCL 60MG DR CAPSULE PO SCH (08:04)
[2020-08-26] MEDS: PANTOPRAZOLE SODIUM 40 MG/VIAL IV SCH (08:04)
[2020-08-26] MEDS: ENOXAPARIN 80MG/0.8ML SYR SUBCUT SCH ×2 (08:04→21:19)
[2020-08-26] MEDS: LACTULOSE 20G/30ML UDC PO SCH (08:04)
[2020-08-26] MEDS: SPIRONOLACTONE 25MG TABLET PO SCH (09:49)
[2020-08-26] MEDS: DIGOXIN 125MCG TABLET PO SCH (17:40)
[2020-08-27] VITALS (12 sets, daily range): BP systolic 104–137; BP diastolic 47–94
[2020-08-27] MEDS: IPRATROPIUM/ALBUTEROL 0.5-3(2.5)MG/3ML NEB HHN SCH ×3 (02:12→21:26)
[2020-08-27] MEDS: DEXTROSE 5% WATER 1,000 ML IV SCH ×3 (03:18→20:59)
[2020-08-27] MEDS: INSULIN LISPRO 100 UNITS/ML SUBCUT SCH ×4 (06:00→17:52)
[2020-08-27] MEDS: BLOOD SUGAR DIAGNOSTIC STRIP TEST SCH ×3 (06:00→17:53)
[2020-08-27 06:16] LABS: CHLORIDE 106 mEq/L (98-107)
[2020-08-27 06:24] LABS: PHOSPHORUS 3.4 mg/dL (2.5-4.9)
[2020-08-27 06:44] LABS: HEMATOCRIT. 33.4 % (42.0-52.0); HEMOGLOBIN. 11.3 g/dL (14.0-18.0); MEAN CORPUSCULAR HEMOGLOBIN 33.8 pg (28.0-32.0); MEAN CORPUSCULAR VOLUME 99.7 fL (80.0-94.0); MEAN PLATELET VOLUME 9.8 fl (7.4-10.4); PLATELET 110 x1000/uL (130-400); RED BLOOD CELL COUNT 3.35 mill/uL (4.7-6.1); RED CELL DISTRIBUTION WIDTH 15.1 % (11.6-14.6)
[2020-08-27] MEDS: METOCLOPRAMIDE HCL 10MG/2ML VIAL IV SCH ×3 (06:46→17:41)
[2020-08-27] MEDS: METHYLPREDNISOLONE SOD SUCC 40 MG/ML VIAL IV SCH ×3 (06:47→21:02)
[2020-08-27] MEDS: METOPROLOL TARTRATE 100MG TABLET PO SCH (09:00)
[2020-08-27] MEDS: LACTULOSE 20G/30ML UDC PO SCH (09:00)
[2020-08-27] MEDS: LOSARTAN POTASSIUM 25 MG TABLET PO SCH (09:00)
[2020-08-27] MEDS: AMLODIPINE 10MG TABLET PO SCH (09:00)
[2020-08-27] MEDS: DULOXETINE HCL 60MG DR CAPSULE PO SCH (09:00)
[2020-08-27] MEDS: RIFAXIMIN 550 MG TABLET PO SCH (09:00)
[2020-08-27] MEDS: SPIRONOLACTONE 25MG TABLET PO SCH (09:00)
[2020-08-27] MEDS: ENOXAPARIN 80MG/0.8ML SYR SUBCUT SCH ×2 (09:57→21:00)
[2020-08-27] MEDS: PANTOPRAZOLE SODIUM 40 MG/VIAL IV SCH (09:57)
[2020-08-27] MEDS ORDERED: FUROSEMIDE 40MG TABLET PO SCH (13:00)
[2020-08-27] MEDS: FUROSEMIDE 40MG/4ML VIAL IVP SCH (16:31)
[2020-08-27] MEDS: METOPROLOL TARTRATE 5MG/5ML VIAL IV PRN (17:40)
[2020-08-27] MEDS: DIGOXIN 500MCG/2ML AMP IV SCH (17:52)
[2020-08-27 22:14] LABS: PLATELET ESTIMATE DECREASED
[2020-08-28] VITALS (11 sets, daily range): BP systolic 105–153; BP diastolic 65–108
[2020-08-28] MEDS: METOCLOPRAMIDE HCL 10MG/2ML VIAL IV SCH ×5 (00:26→23:26)
[2020-08-28] MEDS: BLOOD SUGAR DIAGNOSTIC STRIP TEST SCH ×5 (00:26→23:42)
[2020-08-28] MEDS: IPRATROPIUM/ALBUTEROL 0.5-3(2.5)MG/3ML NEB HHN SCH ×4 (01:34→21:13)
[2020-08-28] MEDS: INSULIN LISPRO 100 UNITS/ML SUBCUT SCH ×5 (06:00→23:42)
[2020-08-28] MEDS: METHYLPREDNISOLONE SOD SUCC 40 MG/ML VIAL IV SCH ×3 (06:03→20:45)
[2020-08-28 06:26] LABS: HEMATOCRIT. 37.3 % (42.0-52.0); HEMOGLOBIN. 12.4 g/dL (14.0-18.0); MEAN CORPUSCULAR HEMOGLOBIN 33.2 pg (28.0-32.0); MEAN PLATELET VOLUME 9.6 fl (7.4-10.4); PLATELET 108 x1000/uL (130-400); RED BLOOD CELL COUNT 3.73 mill/uL (4.7-6.1); RED CELL DISTRIBUTION WIDTH 15.3 % (11.6-14.6)
[2020-08-28 06:42] LABS: CHLORIDE 106 mEq/L (98-107)
[2020-08-28 06:59] LABS: PHOSPHORUS 3.6 mg/dL (2.5-4.9)
[2020-08-28] MEDS: LOSARTAN POTASSIUM 25 MG TABLET PO SCH (09:00)
[2020-08-28] MEDS: DULOXETINE HCL 60MG DR CAPSULE PO SCH (09:00)
[2020-08-28] MEDS: SPIRONOLACTONE 25MG TABLET PO SCH (09:00)
[2020-08-28] MEDS: AMLODIPINE 10MG TABLET PO SCH (09:00)
[2020-08-28] MEDS: LACTULOSE 20G/30ML UDC PO SCH (09:00)
[2020-08-28] MEDS: ENOXAPARIN 80MG/0.8ML SYR SUBCUT SCH ×2 (09:00→20:45)
[2020-08-28] MEDS: FUROSEMIDE 40MG/4ML VIAL IVP SCH (09:29)
[2020-08-28] MEDS: PANTOPRAZOLE SODIUM 40 MG/VIAL IV SCH (09:29)
[2020-08-28] MEDS ORDERED: SODIUM BICARBONATE 4% (2.4MEQ) 5ML VIAL IV ONE (10:07)
[2020-08-28] MEDS ORDERED: LIDOCAINE HCL 1% 20ML VIAL (Pyxis) INJ ONE (10:08)
[2020-08-28 14:00] LABS: NUCLEATED RED BLOOD CELLS 1 /100 WBC
[2020-08-28 14:02] LABS: PLATELET ESTIMATE SLIGHTLY DECREASED
[2020-08-28] MEDS: METOPROLOL TARTRATE 5MG/5ML VIAL IV PRN ×2 (17:12→23:26)
[2020-08-28] MEDS: DIGOXIN 500MCG/2ML AMP IV SCH (18:53)
[2020-08-28] MEDS: DEXTROSE 5% WATER 1,000 ML IV SCH (20:46)
[2020-08-29] VITALS (12 sets, daily range): BP systolic 124–150; BP diastolic 76–97
[2020-08-29] MEDS: IPRATROPIUM/ALBUTEROL 0.5-3(2.5)MG/3ML NEB HHN SCH ×4 (02:04→20:24)
[2020-08-29 05:42] LABS: HEMATOCRIT. 35.9 % (42.0-52.0); HEMOGLOBIN. 12.1 g/dL (14.0-18.0); MEAN CORPUSCULAR HEMOGLOBIN 33.9 pg (28.0-32.0); MEAN CORPUSCULAR VOLUME 100.3 fL (80.0-94.0); MEAN PLATELET VOLUME 8.6 fl (7.4-10.4); PLATELET 107 x1000/uL (130-400); RED BLOOD CELL COUNT 3.58 mill/uL (4.7-6.1); RED CELL DISTRIBUTION WIDTH 15.8 % (11.6-14.6)
[2020-08-29 05:52] LABS: CHLORIDE 109 mEq/L (98-107)
[2020-08-29] MEDS: INSULIN LISPRO 100 UNITS/ML SUBCUT SCH ×3 (06:00→17:19)
[2020-08-29 06:02] LABS: PHOSPHORUS 3.1 mg/dL (2.5-4.9)
[2020-08-29] MEDS: METOCLOPRAMIDE HCL 10MG/2ML VIAL IV SCH ×4 (06:21→23:16)
[2020-08-29] MEDS: BLOOD SUGAR DIAGNOSTIC STRIP TEST SCH ×3 (06:21→17:19)
[2020-08-29] MEDS: SPIRONOLACTONE 25MG TABLET PO SCH (09:00)
[2020-08-29] MEDS: LOSARTAN POTASSIUM 25 MG TABLET PO SCH (09:00)
[2020-08-29] MEDS: DULOXETINE HCL 60MG DR CAPSULE PO SCH (09:00)
[2020-08-29] MEDS: AMLODIPINE 10MG TABLET PO SCH (09:00)
[2020-08-29] MEDS: LACTULOSE 20G/30ML UDC PO SCH (09:00)
[2020-08-29] MEDS: PANTOPRAZOLE SODIUM 40 MG/VIAL IV SCH (09:06)
[2020-08-29] MEDS: METHYLPREDNISOLONE SOD SUCC 40 MG/ML VIAL IV SCH ×2 (09:06→21:05)
[2020-08-29] MEDS: ENOXAPARIN 80MG/0.8ML SYR SUBCUT SCH ×2 (09:06→21:04)
[2020-08-29] MEDS: METOPROLOL TARTRATE 5MG/5ML VIAL IV PRN ×2 (10:27→23:17)
[2020-08-29 13:39] LABS: NUCLEATED RED BLOOD CELLS 4 /100 WBC
[2020-08-29 13:41] LABS: PLATELET ESTIMATE SLIGHTLY DECREASED
[2020-08-29] MEDS: DIGOXIN 500MCG/2ML AMP IV SCH (17:20)
[2020-08-30] VITALS (7 sets, daily range): BP systolic 105–157; BP diastolic 69–98
[2020-08-30] MEDS: IPRATROPIUM/ALBUTEROL 0.5-3(2.5)MG/3ML NEB HHN SCH ×4 (01:54→20:35)
[2020-08-30] MEDS: METOCLOPRAMIDE HCL 10MG/2ML VIAL IV SCH ×4 (05:55→23:13)
[2020-08-30] MEDS: BLOOD SUGAR DIAGNOSTIC STRIP TEST SCH ×5 (05:58→23:13)
[2020-08-30] MEDS: INSULIN LISPRO 100 UNITS/ML SUBCUT SCH ×5 (05:58→23:14)
[2020-08-30] MEDS ORDERED: FUROSEMIDE 20MG TABLET PO SCH (09:00)
[2020-08-30] MEDS: LOSARTAN POTASSIUM 25 MG TABLET PO SCH (09:00)
[2020-08-30] MEDS: LACTULOSE 20G/30ML UDC PO SCH (09:00)
[2020-08-30] MEDS: AMLODIPINE 10MG TABLET PO SCH (09:00)
[2020-08-30] MEDS: SPIRONOLACTONE 25MG TABLET PO SCH (09:00)
[2020-08-30] MEDS: DULOXETINE HCL 60MG DR CAPSULE PO SCH (09:00)
[2020-08-30 09:08] LABS: BASOPHILS % 0.4 % (0.0-2.0); LYMPHOCYTES % 7.3 % (20.0-50.0); MEAN CORPUSCULAR HEMOGLOBIN 33.2 pg (28.0-32.0); MEAN CORPUSCULAR VOLUME 100.1 fL (80.0-94.0); MEAN PLATELET VOLUME 9.6 fl (7.4-10.4); MONOCYTES % 3.9 % (2.0-8.0); NEUTROPHILS % 88.4 % (40.0-76.0); PLATELET 120 x1000/uL (130-400)
[2020-08-30 09:17] LABS: CHLORIDE 111 mEq/L (98-107)
[2020-08-30 09:23] LABS: PHOSPHORUS 3.7 mg/dL (2.5-4.9)
[2020-08-30] MEDS: METHYLPREDNISOLONE SOD SUCC 40 MG/ML VIAL IV SCH ×2 (10:14→21:16)
[2020-08-30] MEDS: PANTOPRAZOLE SODIUM 40 MG/VIAL IV SCH (10:15)
[2020-08-30] MEDS: ENOXAPARIN 80MG/0.8ML SYR SUBCUT SCH (10:20)
[2020-08-30] MEDS ORDERED: DEXTROSE 5% WATER 1,000 ML IV SCH (11:30)
[2020-08-30] MEDS ORDERED: FUROSEMIDE 20MG/2ML VIAL IVP SCH (11:30)
[2020-08-30] MEDS ORDERED: IOHEXOL-350 100 ML BOTTLE ONE (13:28)
[2020-08-30] MEDS: METOPROLOL TARTRATE 5MG/5ML VIAL IV PRN (15:09)
[2020-08-30] MEDS: DIGOXIN 500MCG/2ML AMP IV SCH (17:36)
[2020-08-31] MEDS: IPRATROPIUM/ALBUTEROL 0.5-3(2.5)MG/3ML NEB HHN SCH ×4 (01:31→20:13)
[2020-08-31] MEDS ORDERED: METOPROLOL TARTRATE 5MG/5ML VIAL IV NR (04:00)
[2020-08-31 05:55] LABS: BG BASE EXCESS 3.9 mmol/L (-2.0-2.0); BG CARBOXYHEMOGLOBIN 0.7 % (0.5-1.5); BG DEOXYHEMOGLOBIN 11.5 % (0.0-5.0); BG FRACTION INSPIRED OXYGEN 21; BG HCO3 ACT 28.9 mmol/L (22.0-26.0); BG METHEMOGLOBIN 0.4 % (0.0-1.5); BG OXYGEN SATURATION 88.4 % (92.0-98.5); BG OXYHEMOGLOBIN 87.4 % (94.0-97.0); BG PCO2 44.7 mmHg (35.0-45.0); BG PH 7.428 (7.350-7.450); BG PO2 57.8 mmHg (75.0-100.0); BG SAMPLE SITE RIGHT RADIAL; BG TOTAL HEMOGLOBIN 13.6 g/dL (12.0-18.0); BG VENT MODE ROOM AIR
[2020-08-31] MEDS: INSULIN LISPRO 100 UNITS/ML SUBCUT SCH ×4 (06:00→23:11)
[2020-08-31 06:48] LABS: INR 1.2; PROTHROMBIN TIME 12.3 sec (9.6-11.0)
[2020-08-31 06:56] LABS: BASOPHILS % 0.4 % (0.0-2.0); HEMOGLOBIN. 12.9 g/dL (14.0-18.0); LYMPHOCYTES % 7.5 % (20.0-50.0); MEAN CORPUSCULAR HEMOGLOBIN 33.2 pg (28.0-32.0); MEAN CORPUSCULAR VOLUME 100.8 fL (80.0-94.0); NEUTROPHILS % 88.1 % (40.0-76.0); PLATELET 118 x1000/uL (130-400); RED BLOOD CELL COUNT 3.87 mill/uL (4.7-6.1)
[2020-08-31] MEDS: BLOOD SUGAR DIAGNOSTIC STRIP TEST SCH ×4 (06:57→23:10)
[2020-08-31] MEDS: METOCLOPRAMIDE HCL 10MG/2ML VIAL IV SCH ×4 (06:57→23:11)
[2020-08-31 07:00] LABS: CHLORIDE 113 mEq/L (98-107)
[2020-08-31 07:12] LABS: PHOSPHORUS 3.3 mg/dL (2.5-4.9)
[2020-08-31 08:00] VITALS: BP 151/95
[2020-08-31] MEDS: LOSARTAN POTASSIUM 25 MG TABLET PO SCH (09:00)
[2020-08-31] MEDS ORDERED: CEFTRIAXONE 1,000 MG in DEXTROSE 5% WATER 50 ML IV NR (09:00)
[2020-08-31] MEDS: AMLODIPINE 10MG TABLET PO SCH (09:00)
[2020-08-31] MEDS: LACTULOSE 20G/30ML UDC PO SCH (09:00)
[2020-08-31] MEDS: DULOXETINE HCL 60MG DR CAPSULE PO SCH (09:00)
[2020-08-31] MEDS: SPIRONOLACTONE 25MG TABLET PO SCH (09:00)
[2020-08-31] MEDS: METHYLPREDNISOLONE SOD SUCC 40 MG/ML VIAL IV SCH (09:54)
[2020-08-31] MEDS: PANTOPRAZOLE SODIUM 40 MG/VIAL IV SCH (09:54)
[2020-08-31 10:00] VITALS: BP 141/94
[2020-08-31] MEDS ORDERED: CEFAZOLIN 1000MG PREMIX 50 ML IV NR (11:00)
[2020-08-31] MEDS ORDERED: PROPOFOL 200MG/20ML VIAL IV ONE (14:14)
[2020-08-31] MEDS ORDERED: MIDAZOLAM HCL 2 MG/2 ML VIAL ONE (14:14)
[2020-08-31] MEDS ORDERED: LORAZEPAM 2MG/ML CPJ IV SCH (14:15)
[2020-08-31 16:00] VITALS: BP 132/89
[2020-08-31] MEDS: METOPROLOL TARTRATE 5MG/5ML VIAL IV PRN (16:45)
[2020-08-31] MEDS: DIGOXIN 500MCG/2ML AMP IV SCH (17:16)
[2020-08-31] MEDS: MORPHINE SULFATE 2 MG/ML CPJ (NOT FOR IM USE) IV PRN (17:18)
[2020-08-31 18:00] VITALS: BP 144/80
[2020-08-31] MEDS ORDERED: DEXTROSE 5% WATER 1,000 ML IV SCH (19:30)
[2020-08-31 20:00] VITALS: BP 140/81
[2020-08-31 22:00] VITALS: BP 129/89
[2020-08-31] MEDS ORDERED: DIGOXIN 500MCG/2ML AMP IV NR (23:30)
[2020-09-01] VITALS (13 sets, daily range): BP systolic 91–135; BP diastolic 45–78
[2020-09-01] MEDS: IPRATROPIUM/ALBUTEROL 0.5-3(2.5)MG/3ML NEB HHN SCH ×4 (02:04→20:37)
[2020-09-01] MEDS: ONDANSETRON HCL 4MG/2ML INJ IV PRN (05:13)
[2020-09-01] MEDS: METOCLOPRAMIDE HCL 10MG/2ML VIAL IV SCH ×4 (05:14→23:25)
[2020-09-01] MEDS: MORPHINE SULFATE 2 MG/ML CPJ (NOT FOR IM USE) IV PRN (05:15)
[2020-09-01] MEDS: BLOOD SUGAR DIAGNOSTIC STRIP TEST SCH ×3 (05:15→18:18)
[2020-09-01] MEDS: INSULIN LISPRO 100 UNITS/ML SUBCUT SCH ×3 (05:16→18:00)
[2020-09-01 05:19] LABS: BASOPHILS % 0.3 % (0.0-2.0); EOSINOPHILS % 0.1 % (0.0-5.0); HEMATOCRIT. 37.3 % (42.0-52.0); HEMOGLOBIN. 12.3 g/dL (14.0-18.0); LYMPHOCYTES % 9.7 % (20.0-50.0); MEAN CORPUSCULAR HEMOGLOBIN 33.2 pg (28.0-32.0); MEAN CORPUSCULAR VOLUME 100.8 fL (80.0-94.0); MEAN PLATELET VOLUME 9.5 fl (7.4-10.4); MONOCYTES % 4.2 % (2.0-8.0); NEUTROPHILS % 85.7 % (40.0-76.0); PLATELET 99 x1000/uL (130-400)
[2020-09-01 05:30] LABS: PHOSPHORUS 3.3 mg/dL (2.5-4.9)
[2020-09-01] MEDS ORDERED: LOSARTAN POTASSIUM 50 MG TABLET PO SCH (09:00)
[2020-09-01] MEDS ORDERED: AMLODIPINE 5MG TABLET PO SCH (09:00)
[2020-09-01] MEDS: PREDNISONE 20MG TABLET PO SCH (09:17)
[2020-09-01] MEDS: DULOXETINE HCL 60MG DR CAPSULE PO SCH (09:17)
[2020-09-01] MEDS: LACTULOSE 20G/30ML UDC PO SCH (09:17)
[2020-09-01] MEDS: METOPROLOL TARTRATE 100MG TABLET PO SCH ×2 (09:17→20:58)
[2020-09-01] MEDS: SPIRONOLACTONE 25MG TABLET PO SCH (09:18)
[2020-09-01] MEDS: PANTOPRAZOLE SODIUM 40 MG/VIAL IV SCH (09:18)
[2020-09-01] MEDS ORDERED: NALOXONE HCL 0.4 MG/ML 1ML VIAL IV SCH (10:45)
[2020-09-01] MEDS ORDERED: NALOXONE HCL 0.4 MG/ML 1ML VIAL IV NR (10:45)
[2020-09-01] MEDS ORDERED: NALOXONE HCL 1 MG/ML 2ML VIAL IV NR (12:04)
[2020-09-01 12:26] LABS: BG BASE EXCESS 1.8 mmol/L (-2.0-2.0); BG CARBOXYHEMOGLOBIN 0.9 % (0.5-1.5); BG DEOXYHEMOGLOBIN 7.8 % (0.0-5.0); BG FRACTION INSPIRED OXYGEN 21; BG HCO3 ACT 25.5 mmol/L (22.0-26.0); BG METHEMOGLOBIN 0.1 % (0.0-1.5); BG OXYGEN SATURATION 92.1 % (92.0-98.5); BG OXYHEMOGLOBIN 91.2 % (94.0-97.0); BG PCO2 37.1 mmHg (35.0-45.0); BG PH 7.455 (7.350-7.450); BG PO2 70.3 mmHg (75.0-100.0); BG SAMPLE SITE RIGHT RADIAL; BG TOTAL HEMOGLOBIN 13.3 g/dL (12.0-18.0); BG VENT MODE ROOM AIR
[2020-09-01] MEDS ORDERED: NALOXONE HCL 1 MG/ML 2ML VIAL IV ONE (12:30)
[2020-09-01] MEDS: DIGOXIN 500MCG/2ML AMP IV SCH (18:30)
[2020-09-02] VITALS (12 sets, daily range): BP systolic 98–136; BP diastolic 62–78
[2020-09-02] MEDS: IPRATROPIUM/ALBUTEROL 0.5-3(2.5)MG/3ML NEB HHN SCH ×3 (01:15→19:49)
[2020-09-02] MEDS: METOCLOPRAMIDE HCL 10MG/2ML VIAL IV SCH (05:42)
[2020-09-02] MEDS: BLOOD SUGAR DIAGNOSTIC STRIP TEST SCH ×5 (06:00→23:37)
[2020-09-02] MEDS: INSULIN LISPRO 100 UNITS/ML SUBCUT SCH ×5 (06:00→23:38)
[2020-09-02 07:01] LABS: HEMATOCRIT. 40.2 % (42.0-52.0); HEMOGLOBIN. 13.1 g/dL (14.0-18.0); MEAN CORPUSCULAR HEMOGLOBIN 33.1 pg (28.0-32.0); MEAN CORPUSCULAR VOLUME 101.5 fL (80.0-94.0); MEAN PLATELET VOLUME 9.4 fl (7.4-10.4); PLATELET 88 x1000/uL (130-400); RED BLOOD CELL COUNT 3.96 mill/uL (4.7-6.1); RED CELL DISTRIBUTION WIDTH 16.2 % (11.6-14.6)
[2020-09-02 07:03] LABS: PHOSPHORUS 3.4 mg/dL (2.5-4.9)
[2020-09-02] MEDS: LACTULOSE 20G/30ML UDC PO SCH (09:32)
[2020-09-02] MEDS: PANTOPRAZOLE SODIUM 40 MG/VIAL IV SCH (09:32)
[2020-09-02] MEDS: DULOXETINE HCL 60MG DR CAPSULE PO SCH (09:33)
[2020-09-02] MEDS: PREDNISONE 20MG TABLET PO SCH (09:33)
[2020-09-02] MEDS: METOPROLOL TARTRATE 100MG TABLET PO SCH ×2 (09:34→21:00)
[2020-09-02] MEDS: ENOXAPARIN 80MG/0.8ML SYR SUBCUT SCH ×2 (13:27→23:24)
[2020-09-02] MEDS: DIGOXIN 500MCG/2ML AMP IV SCH (17:13)
[2020-09-02 18:16] LABS: PLATELET ESTIMATE DECREASED
[2020-09-02] MEDS: CEFEPIME 2,000 MG in DEXT 5% WATER 100 ML IV SCH (23:28)
[2020-09-03] VITALS (11 sets, daily range): BP systolic 102–134; BP diastolic 63–78
[2020-09-03 01:06] LABS: CLARITY URINE CLEAR (CLEAR); COLOR URINE YELLOW (YELLOW); KETONES URINE NEGATIVE (NEGATIVE); LEUKOCYTE ESTERASE URINE 2+ (NEGATIVE); NITRITE URINE NEGATIVE (NEGATIVE); OCCULT BLOOD URINE 1+ (NEGATIVE); PROTEIN URINE 1+ (NEGATIVE); SPECIFIC GRAVITY URINE 1.015 (1.005-1.030); UROBILINOGEN URINE >8.0 E.U./dL (0.2-1.0)
[2020-09-03] MEDS: IPRATROPIUM/ALBUTEROL 0.5-3(2.5)MG/3ML NEB HHN SCH ×4 (02:03→20:14)
[2020-09-03] MEDS: INSULIN LISPRO 100 UNITS/ML SUBCUT SCH ×4 (06:00→23:49)
[2020-09-03] MEDS: BLOOD SUGAR DIAGNOSTIC STRIP TEST SCH ×4 (06:00→23:01)
[2020-09-03 06:22] LABS: CHLORIDE 115 mEq/L (98-107)
[2020-09-03 06:28] LABS: HEMATOCRIT. 39.7 % (42.0-52.0); HEMOGLOBIN. 13.1 g/dL (14.0-18.0); MEAN CORPUSCULAR HEMOGLOBIN 33.4 pg (28.0-32.0); MEAN CORPUSCULAR VOLUME 101.2 fL (80.0-94.0); MEAN PLATELET VOLUME 9.6 fl (7.4-10.4); PLATELET 85 x1000/uL (130-400); RED BLOOD CELL COUNT 3.92 mill/uL (4.7-6.1); RED CELL DISTRIBUTION WIDTH 16.2 % (11.6-14.6)
[2020-09-03 06:31] LABS: PHOSPHORUS 3.3 mg/dL (2.5-4.9)
[2020-09-03 08:47] LABS: PLATELET ESTIMATE DECREASED
[2020-09-03] MEDS: LACTULOSE 20G/30ML UDC PO SCH (09:13)
[2020-09-03] MEDS: ENOXAPARIN 80MG/0.8ML SYR SUBCUT SCH ×2 (09:13→20:31)
[2020-09-03] MEDS: CYANOCOBALAMIN 1000MCG TABLET PO SCH (09:14)
[2020-09-03] MEDS: PANTOPRAZOLE SODIUM 40 MG/VIAL IV SCH (09:15)
[2020-09-03] MEDS: PREDNISONE 20MG TABLET PO SCH (09:15)
[2020-09-03] MEDS: METOPROLOL TARTRATE 100MG TABLET PO SCH ×2 (09:15→20:32)
[2020-09-03] MEDS ORDERED: ACETAMINOPHEN 650MG/20.3ML UDC PO PRN (10:45)
[2020-09-03] MEDS: DIGOXIN 500MCG/2ML AMP IV SCH (18:07)
[2020-09-04] VITALS (12 sets, daily range): BP systolic 95–119; BP diastolic 51–77
[2020-09-04] MEDS: CEFEPIME 2,000 MG in DEXT 5% WATER 100 ML IV SCH (00:03)
[2020-09-04] MEDS: IPRATROPIUM/ALBUTEROL 0.5-3(2.5)MG/3ML NEB HHN SCH ×4 (01:08→19:48)
[2020-09-04] MEDS: BLOOD SUGAR DIAGNOSTIC STRIP TEST SCH ×3 (05:27→18:29)
[2020-09-04] MEDS: INSULIN LISPRO 100 UNITS/ML SUBCUT SCH ×3 (06:06→18:28)
[2020-09-04 06:29] LABS: HEMATOCRIT. 38.8 % (42.0-52.0); HEMOGLOBIN. 12.8 g/dL (14.0-18.0); MEAN CORPUSCULAR HEMOGLOBIN 33.1 pg (28.0-32.0); MEAN CORPUSCULAR VOLUME 100.3 fL (80.0-94.0); MEAN PLATELET VOLUME 10.1 fl (7.4-10.4); PLATELET 91 x1000/uL (130-400); RED BLOOD CELL COUNT 3.87 mill/uL (4.7-6.1)
[2020-09-04 06:36] LABS: PHOSPHORUS 3.8 mg/dL (2.5-4.9)
[2020-09-04 08:52] LABS: BG BASE EXCESS 5.8 mmol/L (-2.0-2.0); BG CARBOXYHEMOGLOBIN 0.3 % (0.5-1.5); BG DEOXYHEMOGLOBIN 2.8 % (0.0-5.0); BG FRACTION INSPIRED OXYGEN 32; BG HCO3 ACT 29.9 mmol/L (22.0-26.0); BG METHEMOGLOBIN 0.3 % (0.0-1.5); BG OXYGEN SATURATION 97.2 % (92.0-98.5); BG OXYHEMOGLOBIN 96.6 % (94.0-97.0); BG PCO2 41.4 mmHg (35.0-45.0); BG PH 7.477 (7.350-7.450); BG SAMPLE SITE RIGHT RADIAL; BG TOTAL HEMOGLOBIN 13.4 g/dL (12.0-18.0); BG VENT MODE NASAL CANNULA
[2020-09-04] MEDS: ENOXAPARIN 80MG/0.8ML SYR SUBCUT SCH ×2 (10:23→21:01)
[2020-09-04] MEDS: PANTOPRAZOLE SODIUM 40 MG/VIAL IV SCH (10:23)
[2020-09-04] MEDS: CYANOCOBALAMIN 1000MCG TABLET PO SCH (10:23)
[2020-09-04] MEDS: PREDNISONE 20MG TABLET PO SCH (10:23)
[2020-09-04] MEDS: LACTULOSE 20G/30ML UDC PO SCH (10:24)
[2020-09-04] MEDS: METOPROLOL TARTRATE 100MG TABLET PO SCH ×2 (10:24→21:00)
[2020-09-04 10:41] LABS: PLATELET ESTIMATE DECREASED
[2020-09-04] MEDS ORDERED: DEXTROSE 5% WATER 1,000 ML IV SCH (12:30)
[2020-09-04] MEDS ORDERED: SODIUM POLYSTYRENE SULFONATE 15 G/60 ML BOT GT SCH (13:00)
[2020-09-04] MEDS ORDERED: DIGOXIN 125MCG TABLET PO SCH (18:00)
[2020-09-04] MEDS: ONDANSETRON HCL 4MG/2ML INJ IV PRN (21:00)
[2020-09-04 23:37] LABS: BG BASE EXCESS -2.3 mmol/L (-2.0-2.0); BG CARBOXYHEMOGLOBIN 0.3 % (0.5-1.5); BG DEOXYHEMOGLOBIN 4.3 % (0.0-5.0); BG FRACTION INSPIRED OXYGEN 100; BG HCO3 ACT 21.1 mmol/L (22.0-26.0); BG METHEMOGLOBIN 0.1 % (0.0-1.5); BG OXYGEN SATURATION 95.7 % (92.0-98.5); BG OXYHEMOGLOBIN 95.3 % (94.0-97.0); BG PCO2 32.7 mmHg (35.0-45.0); BG PH 7.428 (7.350-7.450); BG PO2 88.9 mmHg (75.0-100.0); BG SAMPLE SITE RIGHT BRACHIAL; BG TOTAL HEMOGLOBIN 14.3 g/dL (12.0-18.0); BG VENT MODE MASK - NRB
[2020-09-05] VITALS: BP 83/47
[2020-09-05] MEDS: BLOOD SUGAR DIAGNOSTIC STRIP TEST SCH
[2020-09-05] MEDS ORDERED: SODIUM CHLORIDE 0.9% 500 ML IV ONE ×3 (00:30→12:28)
[2020-09-05] MEDS ORDERED: EPINEPHRINE 0.1MG/ML (1:10,000) 10ML SYR ONE (01:00)
[2020-09-05] MEDS ORDERED: SODIUM CHLORIDE 0.9% 500 ML IV SCH (01:00)
== END 2020-09-05 01:10 | disposition expired | DRG 870 ==
LOC: ER 13:50 → 3WST 15:19 → EDBEDREQ 15:26 → EDBEDREQTM 19:27 → EDBEDREQSVC 19:27 → ENRESERV 20:25 → CVICU 08-14 15:29 → 5EST 08-23 15:55
PROVIDERS: ADMIT Internal Medicine; ATTEND Internal Medicine
PROC: 02HV33Z Insertion of Infusion Device into Superior Vena Cava, Percutaneous Approach (ICD-10-PCS; 2020-08-12)
PROC: B5181ZA Fluoroscopy of Superior Vena Cava using Low Osmolar Contrast, Guidance (ICD-10-PCS; 2020-08-12)
PROC: 5A1955Z Respiratory Ventilation, Greater than 96 Consecutive Hours (ICD-10-PCS; principal; 2020-08-14)
PROC: 0BH18EZ Insertion of Endotracheal Airway into Trachea, Via Natural or Artificial Opening Endoscopic (ICD-10-PCS; 2020-08-14)
PROC: 30233M1 Transfusion of Nonautologous Plasma Cryoprecipitate into Peripheral Vein, Percutaneous Approach (ICD-10-PCS; 2020-08-15)
PROC: 05H533Z Insertion of Infusion Device into Right Subclavian Vein, Percutaneous Approach (ICD-10-PCS; 2020-08-28)
PROC: B546ZZA Ultrasonography of Right Subclavian Vein, Guidance (ICD-10-PCS; 2020-08-28)
PROC: 0DH63UZ Insertion of Feeding Device into Stomach, Percutaneous Approach (ICD-10-PCS; 2020-08-31)
PROC: 0DB68ZX Excision of Stomach, Via Natural or Artificial Opening Endoscopic, Diagnostic (ICD-10-PCS; 2020-08-31)
DX: A41.9 Sepsis, unspecified organism (principal); I21.A1 Myocardial infarction type 2; N17.0 Acute kidney failure with tubular necrosis; J69.0 Pneumonitis due to inhalation of food and vomit; J96.00 Acute respiratory failure, unspecified whether with hypoxia or hypercapnia; G92 Toxic encephalopathy; K72.00 Acute and subacute hepatic failure without coma; B37.1 Pulmonary candidiasis; I50.43 Acute on chronic combined systolic (congestive) and diastolic (congestive) heart failure; J96.01 Acute respiratory failure with hypoxia; E44.1 Mild protein-calorie malnutrition; I13.0 Hypertensive heart and chronic kidney disease with heart failure and stage 1 through stage 4 chronic kidney disease, or unspecified chronic kidney disease; I69.354 Hemiplegia and hemiparesis following cerebral infarction affecting left non-dominant side; E87.2 Acidosis; I82.432 Acute embolism and thrombosis of left popliteal vein; I42.9 Cardiomyopathy, unspecified; E87.0 Hyperosmolality and hypernatremia; I82.502 Chronic embolism and thrombosis of unspecified deep veins of left lower extremity; N17.9 Acute kidney failure, unspecified; I96 Gangrene, not elsewhere classified; E78.5 Hyperlipidemia, unspecified; E87.5 Hyperkalemia; F14.10 Cocaine abuse, uncomplicated; I48.91 Unspecified atrial fibrillation; F14.129 Cocaine abuse with intoxication, unspecified; F12.90 Cannabis use, unspecified, uncomplicated; D53.9 Nutritional anemia, unspecified; D69.6 Thrombocytopenia, unspecified; E11.22 Type 2 diabetes mellitus with diabetic chronic kidney disease; E83.39 Other disorders of phosphorus metabolism; E86.0 Dehydration; E87.6 Hypokalemia; F03.90 Unspecified dementia, unspecified severity, without behavioral disturbance, psychotic disturbance, mood disturbance, and anxiety; F09 Unspecified mental disorder due to known physiological condition; I25.10 Atherosclerotic heart disease of native coronary artery without angina pectoris; I48.0 Paroxysmal atrial fibrillation; R04.0 Epistaxis; N18.30 Chronic kidney disease, stage 3 unspecified; E11.51 Type 2 diabetes mellitus with diabetic peripheral angiopathy without gangrene; Z20.828 Contact with and (suspected) exposure to other viral communicable diseases; Z66 Do not resuscitate; R47.02 Dysphasia; Z82.49 Family history of ischemic heart disease and other diseases of the circulatory system; Z99.2 Dependence on renal dialysis; I25.2 Old myocardial infarction; Z79.82 Long term (current) use of aspirin; Z79.899 Other long term (current) drug therapy; Z68.24 Body mass index [BMI] 24.0-24.9, adult; R13.10 Dysphagia, unspecified; I69.392 Facial weakness following cerebral infarction
CPT/HCPCS: 36415; 36600; 70551; 71045; 71250; 73206; 76700; 76705; 76857; 76937; 77001; 78582; 80048; 80053; 80061; 80076; 80162; 80305; 81003; 82040; 82043; 82140; 82248; 82375; 82550; 82570; 82595; 82607; 82728; 82746; 82805; 82962; 83036; 83520; 83540; 83550; 83605; 83615; 83735; 83880; 83935; 84100; 84132; 84134; 84145; 84300; 84443; 84484; 85025; 85379; 85384; 85613; 85732; 86022; 86038; 86147; 86160; 86256; 86705; 86709; 86803; 86850; 86870; 86900; 86945; 87070; 87077; 87106; 87186; 87340; 87389; 87426; 88305; 88313; 92610; 92950; 93005; 93306; 93922; 93970; 94002; 94003; 94640; 97110; 97112; 97162; 97164; 97166; 97530; 97535; 99291; A6261; A9558; C1725; C1752; C1769; C1887; C9113; J0282; J0330; J0690; J0692; J0696; J1160; J1200; J1644; J1650; J1815; J1940; J2060; J2250; J2270; J2310; J2405; J2704; J2765; J2920; J2930; J3010; J3430; J3475; J3480; J3490; J7030; J7040; J7042; J7050; J7060; J7070; J7512; L8514; P9034; Q9967; A4315